=== PATIENT | female | born 1990 | race Two or more races ===

== ENCOUNTER 2023-03-18 20:25 | Inpatient (IN) | payer MEDICAID ==
[~2023-03-18] VITALS: Ht 162.6 cm; Wt 46.4 kg
[2023-03-18] MEDS: ALBUTEROL FS 2.5 MG/3 ML VIAL.NEB NEB ONE
[2023-03-18] MEDS: IV LR 1000 ML 1,000 ML BAG IV ONE (21:30)
[2023-03-18] MEDS ORDERED: ATROPINE SULFATE 1 MG/10 ML DISP.SYRIN IV ONE (22:00)
[2023-03-18] MEDS ORDERED: NOREPINEPHRINE 8MG/250ML RTU 250 ML IV ONE (22:05)
[2023-03-18] MEDS ORDERED: ATROPINE SULFATE INJ 1 MG/ML VIAL ONE (22:06)
[2023-03-18 22:13] LABS: BASOPHILS # (AUTO) 0.1 K/uL (0.0-0.2); BASOPHILS % (AUTO) 0.6 % (0.0-2.0); HEMATOCRIT 28 % (33-45); HEMOGLOBIN 8.2 g/dL (11.5-14.8); LYMPHOCYTES # (AUTO) 1.5 K/uL (0.8-4.8); LYMPHOCYTES % (AUTO) 8.2 % (20.0-44.0); MEAN CORPUSCULAR HEMOGLOBIN 29 PG (26.0-33.0); MEAN CORPUSCULAR HGB CONC 30 g/dl (31.0-36.0); MEAN CORPUSCULAR VOLUME 98 fL (82-100); MONOCYTES # (AUTO) 1.2 K/uL (0.1-1.30); MONOCYTES % (AUTO) 6.3 % (2.0-12.0); NEUTROPHILS # (AUTO) 15.9 K/uL (1.8-8.9); NEUTROPHILS % (AUTO) 84.9 % (43.0-81.0); PLATELET COUNT (AUTO) 319 K/uL (150-450); RED BLOOD CELL COUNT(AUTO) 2.85 MIL/uL (4.0-5.2); WHITE BLOOD COUNT (AUTO) 18.7 K/uL (4.3-11.0)
[2023-03-18] MEDS: NOREPINEPHRINE 8 MG in IV NS 0.9% 250 ML IV ONE (22:20)
[2023-03-18 22:29] LABS: INR 1.03 (0.91-1.10); PARTIAL THROMBOPLASTIN TIME 35.4 SEC (24.3-34.3); PROTHROMBIN TIME 10.9 SECS (9.2-11.1)
[2023-03-18 22:47] LABS: SERUM AMMONIA 18 umol/L (11-32)
[2023-03-18 22:52] LABS: THYROID STIMULATING HORMONE 5.942 uIU/mL (0.358-3.74)
[2023-03-18 22:54] LABS: ALANINE AMINOTRANSFERASE 18 U/L (12-78); ALBUMIN 2.1 g/dL (3.4-5.0); ALCOHOL, BLOOD < 3 mg/dL (0-10); ALKALINE PHOSPHATASE 113 U/L (46-116); ASPARTATE AMINOTRANSFERASE 15 U/L (15-37); BILIRUBIN,DIRECT 0.1 mg/dL (0.0-0.2); BILIRUBIN,TOTAL 0.3 mg/dL (0.2-1.0); CALCIUM, SERUM 9.2 mg/dL (8.5-10.1); CHLORIDE 103 mmol/L (98-107); GLUCOSE 259 mg/dL (74-106); SODIUM SERUM 133 mmol/L (136-145); TOTAL PROTEIN, SERUM 6.7 g/dL (6.4-8.2)
[2023-03-18 22:58] LABS: SALICYLATE 2.2 mg/dL (2.8-20.0)
[2023-03-18 22:59] LABS: ACETAMINOPHEN <10 ug/ml (10-30); CARBON DIOXIDE 7 mmol/L (21-32); CREATININE 9.6 mg/dL (0.6-1.3); LACTIC ACID 1.5 mmol/L (0.4-2.0); UREA NITROGEN, BLOOD 158 mg/dL (7-18)
[2023-03-18] MEDS: INSULIN REGULAR, HUMAN 100 UNIT/ML 10 ML VIAL IV ONE (23:00)
[2023-03-18] MEDS: DEXTROSE 50%-WATER 50 ML DISP.SYRIN IV ONE (23:00)
[2023-03-18] MEDS: CALCIUM CHLORIDE 1,000 MG/10 ML DISP.SYRIN IV ONE (23:00)
[2023-03-18] MEDS: CEFEPIME 1 GM in IV D5W 50 ML IV ONE (23:00)
[2023-03-18] MEDS ORDERED: VANCOMYCIN 1 GM /D5W 250 ML PB IV ONE (23:14)
[2023-03-18] MEDS: VANCOMYCIN 1 GM in IV D5W 250 ML IV ONE (23:15)
[2023-03-18 23:19] LABS: PHOSPHORUS 14.8 mg/dL (2.5-4.9)
[2023-03-18 23:20] LABS: MAGNESIUM 2.9 mg/dL (1.8-2.4)
[2023-03-18] MEDS ORDERED: LORAZEPAM INJ 2 MG/ML VIAL IV PRN (23:30)
[2023-03-18] MEDS ORDERED: SODIUM POLYSTYRENE SULFONATE 15 G/60 ML BOTTLE ONE (23:57)
[2023-03-18] MEDS ORDERED: CEFEPIME 1 GM VIAL ONE (23:57)
[2023-03-18] MEDS ORDERED: CALCIUM CHLORIDE 1,000 MG/10 ML DISP.SYRIN ONE (23:58)
[2023-03-18] MEDS ORDERED: INSULIN REGULAR, HUMAN 100 UNIT/ML 10 ML VIAL ONE (23:58)
[2023-03-18] MEDS ORDERED: DEXTROSE 50%-WATER 50 ML DISP.SYRIN ONE (23:58)
[2023-03-19] VITALS (62 sets, daily range): BP systolic 83–187; BP diastolic 40–131; TEMP 97–98.7; O2SAT 94–100
[2023-03-19] MEDS ORDERED: MAG HYDROX/AL HYDROX/SIMETH 30 ML UDC PO PRN
[2023-03-19] MEDS ORDERED: ZOLPIDEM TARTRATE 5 MG TABLET PO PRN
[2023-03-19] MEDS ORDERED: MAGNESIUM HYDROXIDE 30 ML UDC PO PRN
[2023-03-19] MEDS ORDERED: ALBUTEROL FS 2.5 MG/3 ML VIAL.NEB ONE (00:02)
[2023-03-19] MEDS ORDERED: ONDANSETRON HCL 4 MG/5 ML SOLUTION PO PRN (01:00)
[2023-03-19] MEDS: NOREPINEPHRINE 8 MG in IV D5W 242 ML IV PRN (01:54)
[2023-03-19 04:25] LABS: BASOPHILS # (AUTO) 0.1 K/uL (0.0-0.2); BASOPHILS % (AUTO) 0.7 % (0.0-2.0); HEMATOCRIT 28 % (33-45); HEMOGLOBIN 8.7 g/dL (11.5-14.8); LYMPHOCYTES # (AUTO) 1.3 K/uL (0.8-4.8); LYMPHOCYTES % (AUTO) 5.8 % (20.0-44.0); MEAN CORPUSCULAR HEMOGLOBIN 29 PG (26.0-33.0); MEAN CORPUSCULAR HGB CONC 31 g/dl (31.0-36.0); MEAN CORPUSCULAR VOLUME 93 fL (82-100); MONOCYTES # (AUTO) 1.7 K/uL (0.1-1.30); MONOCYTES % (AUTO) 7.8 % (2.0-12.0); NEUTROPHILS # (AUTO) 18.4 K/uL (1.8-8.9); NEUTROPHILS % (AUTO) 85.7 % (43.0-81.0); PLATELET COUNT (AUTO) 311 K/uL (150-450); RED BLOOD CELL COUNT(AUTO) 3.01 MIL/uL (4.0-5.2); RED CELL DISTRIBUTION WIDTH 16.9 % (11.5-15.0); WHITE BLOOD COUNT (AUTO) 21.5 K/uL (4.3-11.0)
[2023-03-19] MEDS: hydrALAZINE HCL 10 MG TABLET PO SCH (04:42)
[2023-03-19 04:47] LABS: CALCIUM, SERUM 9.9 mg/dL (8.5-10.1); MAGNESIUM 2.7 mg/dL (1.8-2.4)
[2023-03-19 05:04] LABS: CREATININE 9.4 mg/dL (0.6-1.3); PHOSPHORUS 14.9 mg/dL (2.5-4.9); POTASSIUM 6.3 mmol/L (3.5-5.1)
[2023-03-19] MEDS: SODIUM POLYSTYRENE SULFONATE 15 G/60 ML BOTTLE PO ONE ×3 (05:51→07:50)
[2023-03-19 06:12] LABS: ABG BASE EXCESS -26.3 mmol/L; ABG OXYGEN SATURATION 96.7 % (92.0-98.5); ABG PCO2 23.8 mmHg (35.0-45.0); ABG PO2 143.4 mmHg (75.0-100.0); ABG TOTAL HEMOGLOBIN 9.8 G/dL (12.0-16.0); AaDO2 28.2 mmHg; COHb 0.2 % (0.5-1.5); MetHb 0.3 % (0.0-1.5); O2Hb 96.2 % (94.0-97.0); SITE, ABG Right Radial; VENT MODE, BG Nasal Cannula
[2023-03-19] MEDS: BLOOD SUGAR DIAGNOSTIC 1 EACH STRIP IN SCH ×3 (06:28→17:15)
[2023-03-19] MEDS: INSULIN REGULAR, HUMAN 100 UNIT/ML 3 ML VIAL SQ PRN ×2 (06:31→23:44)
[2023-03-19] MEDS ORDERED: VANCOMYCIN POST DIALYSIS 500MG IV PRN (07:30)
[2023-03-19] MEDS: PANTOPRAZOLE 40 MG TABLET.DR PO SCH (07:30)
[2023-03-19] MEDS: SODIUM BICARBONATE SYR 50 MEQ/50 ML DISP.SYRIN IV ONE (08:20)
[2023-03-19] MEDS: SEVELAMER CARBONATE 800 MG TABLET PO SCH (08:20)
[2023-03-19] MEDS: PREGABALIN 25 MG CAPSULE PO SCH (08:20)
[2023-03-19] MEDS: FLUOXETINE HCL 20 MG CAPSULE PO SCH (08:21)
[2023-03-19] MEDS: METOLAZONE 2.5 MG TABLET PO SCH (08:27)
[2023-03-19] MEDS: AMLODIPINE BESYLATE 2.5 MG TABLET PO SCH (08:27)
[2023-03-19] MEDS: Sodium Bicarbonate 150 MEQ in IV D5W 1,000 ML IV SCH (08:39)
[2023-03-19] MEDS ORDERED: ACET-2605 PO (08:50)
[2023-03-19] MEDS ORDERED: HYDR-4075 PO (08:50)
[2023-03-19] MEDS ORDERED: FLUO40CA49 PO (08:50)
[2023-03-19] MEDS ORDERED: ACET-868 PO (08:50)
[2023-03-19] MEDS ORDERED: METO10TA8 PO (08:50)
[2023-03-19] MEDS ORDERED: FAMO-130 PO (08:50)
[2023-03-19] MEDS ORDERED: PROTEIN LIQUID PO (08:50)
[2023-03-19] MEDS ORDERED: FERR325T28 PO (08:50)
[2023-03-19] MEDS ORDERED: *INS REG3 SQ (08:50)
[2023-03-19] MEDS ORDERED: HYDR2TAB4 PO (08:50)
[2023-03-19] MEDS ORDERED: NA P133E RC (08:50)
[2023-03-19] MEDS ORDERED: CHOL500052 PO (08:50)
[2023-03-19] MEDS ORDERED: PREG25CA51 PO (08:50)
[2023-03-19] MEDS ORDERED: INSU100V7 SQ (08:50)
[2023-03-19] MEDS ORDERED: VITA1TAB98 PO (08:50)
[2023-03-19] MEDS ORDERED: AMLO5TAB4 PO (08:50)
[2023-03-19] MEDS ORDERED: ONDA-97 PO (08:50)
[2023-03-19] MEDS ORDERED: BISA10SU11 RC (08:50)
[2023-03-19] MEDS: ONDANSETRON HCL/PF 4 MG/2 ML VIAL IVP PRN (10:23)
[2023-03-19] MEDS ORDERED: hydrALAZINE HCL IV 20 MG VIAL IV PRN (11:00)
[2023-03-19] MEDS ORDERED: INSULIN REGULAR, HUMAN 100 UNIT in IV NS 0.9% 99 ML IV PRN (11:00)
[2023-03-19 12:32] LABS: AMPHETAMINE, URINE POSITIVE (NEGATIVE); BARBITURATE, URINE NEGATIVE (NEGATIVE); BENZODIAZEPINE, URINE NEGATIVE (NEGATIVE); CANNABINOID, URINE NEGATIVE (NEGATIVE); COCCAINE, URINE NEGATIVE (NEGATIVE); OPIATE, URINE NEGATIVE (NEGATIVE); PHENCYCLIDINE SCREEN,URINE NEGATIVE (NEGATIVE)
[2023-03-19 12:38] LABS: APPEARANCE,URINE TURBID (CLEAR); BILIRUBIN,URINE NEGATIVE (NEGATIVE); BLOOD, URINE 2+ Ery/uL (NEGATIVE); COLOR,URINE GREEN (YELLOW); KETONES,URINE NEGATIVE (NEGATIVE); PROTEIN,URINE 3+ mg/dl (NEGATIVE); UGLUCOSE NEGATIVE (NEGATIVE); UROBILINOGEN,URINE 0.2 EU/dL (0.2)
[2023-03-19 12:39] LABS: LEUKOCYTE ESTERASE ,URINE 2+ (NEGATIVE); NITRITE, URINE NEGATIVE (NEGATIVE)
[2023-03-19 12:50] LABS: PREGNANCY TEST URINE QUAL NEGATIVE (NEGATIVE)
[2023-03-19 12:59] LABS: ADD URINE CULTURE YES; BACTERIA,URINE Many /HPF (None Seen); SQUAMOUS EPITHELIAL CELL,UR Moderate /HPF (None Seen); WBC,URINE TOO NUMEROUS TO COUN /HPF (0-3)
[2023-03-19 13:23] LABS: CREATININE 3.6 mg/dL (0.6-1.3); MAGNESIUM 1.9 mg/dL (1.8-2.4)
[2023-03-19 13:26] LABS: POTASSIUM 1.9 mmol/L (3.5-5.1)
[2023-03-19] MEDS: DEXTROSE 50%-WATER 50 ML DISP.SYRIN IV PRN (14:02)
[2023-03-19] MEDS: POTASSIUM CL. PREMIX PERIPHER. 50 ML IV SCH ×2 (14:04→20:33)
[2023-03-19] MEDS ORDERED: DEXTROSE 50%-WATER 50 ML DISP.SYRIN IV PRN (16:00)
[2023-03-19 16:46] LABS: ABG BASE EXCESS 2.7 mmol/L; ABG OXYGEN SATURATION 96.9 % (92.0-98.5); ABG PCO2 25.6 mmHg (35.0-45.0); ABG PH 7.587 (7.350-7.450); ABG PO2 112.5 mmHg (75.0-100.0); ABG TOTAL HEMOGLOBIN 9.9 G/dL (12.0-16.0); AaDO2 28.2 mmHg; COHb 0.5 % (0.5-1.5); MetHb 0.2 % (0.0-1.5); O2Hb 96.2 % (94.0-97.0); SITE, ABG Right Radial; VENT MODE, BG 1L NC
[2023-03-19 18:17] LABS: CALCIUM, SERUM 8.5 mg/dL (8.5-10.1); CREATININE 4.1 mg/dL (0.6-1.3)
[2023-03-19 18:19] LABS: POTASSIUM 2.7 mmol/L (3.5-5.1)
[2023-03-19] MEDS: CEFEPIME 1 GM in IV D5W 50 ML IV SCH (23:18)
[2023-03-19] MEDS: MORPHINE SULFATE INJ 2 MG/ML DISP.SYRIN IV PRN (23:33)
[2023-03-20] VITALS (13 sets, daily range): BP systolic 110–149; BP diastolic 67–92; TEMP 97.9–98.9; O2SAT 92–98
[2023-03-20 05:11] LABS: BASOPHILS # (AUTO) 0.1 K/uL (0.0-0.2); BASOPHILS % (AUTO) 0.9 % (0.0-2.0); EOSINOPHILS # (AUTO) 0.1 K/uL (0.0-0.7); EOSINOPHILS % (AUTO) 0.8 % (0.0-6.0); HEMATOCRIT 25 % (33-45); HEMOGLOBIN 8.3 g/dL (11.5-14.8); LYMPHOCYTES # (AUTO) 1.4 K/uL (0.8-4.8); LYMPHOCYTES % (AUTO) 14.5 % (20.0-44.0); MEAN CORPUSCULAR HEMOGLOBIN 29 PG (26.0-33.0); MEAN CORPUSCULAR HGB CONC 33 g/dl (31.0-36.0); MEAN CORPUSCULAR VOLUME 88 fL (82-100); MONOCYTES # (AUTO) 1.1 K/uL (0.1-1.30); MONOCYTES % (AUTO) 10.8 % (2.0-12.0); NEUTROPHILS # (AUTO) 7.2 K/uL (1.8-8.9); PLATELET COUNT (AUTO) 263 K/uL (150-450); RED BLOOD CELL COUNT(AUTO) 2.86 MIL/uL (4.0-5.2); RED CELL DISTRIBUTION WIDTH 16.8 % (11.5-15.0); WHITE BLOOD COUNT (AUTO) 9.8 K/uL (4.3-11.0)
[2023-03-20 05:19] LABS: CALCIUM, SERUM 8.3 mg/dL (8.5-10.1); CREATININE 4.7 mg/dL (0.6-1.3)
[2023-03-20 05:25] LABS: MAGNESIUM 2.1 mg/dL (1.8-2.4); PHOSPHORUS 8.2 mg/dL (2.5-4.9); POTASSIUM 2.8 mmol/L (3.5-5.1)
[2023-03-20 08:07] LABS: HEPATITIS B SURFACE AB Reactive (.)
[2023-03-20 08:37] LABS: ABG BASE EXCESS -4.2 mmol/L; ABG OXYGEN SATURATION 93.3 % (92.0-98.5); ABG PH 7.383 (7.350-7.450); ABG PO2 77.4 mmHg (75.0-100.0); ABG TOTAL HEMOGLOBIN 8.6 G/dL (12.0-16.0); AaDO2 30.4 mmHg; COHb 0.7 % (0.5-1.5); MetHb 0.2 % (0.0-1.5); O2Hb 92.5 % (94.0-97.0); SITE, ABG Right Brachial; VENT MODE, BG room air
[2023-03-20] MEDS: Z GUARD REMEDY 4 OZ OINT TP PRN (09:06)
[2023-03-20] MEDS: POTASSIUM CL. PREMIX PERIPHER. 50 ML IV SCH (11:42)
[2023-03-20] MEDS: *INSULIN REGULAR(HUMULIN R)HUM 100 UNIT/ML VIAL SQ PRN (17:16)
[2023-03-20] MEDS: ACETAMINOPHEN 325 MG TABLET PO PRN (23:21)
[2023-03-21 00:45] VITALS: BP 138/76; TEMP 98.3; O2SAT 98
[2023-03-21 05:05] VITALS: BP 144/90; TEMP 97.7; O2SAT 98
[2023-03-21 07:00] LABS: BASOPHILS # (AUTO) 0.1 K/uL (0.0-0.2); BASOPHILS % (AUTO) 1.1 % (0.0-2.0); EOSINOPHILS # (AUTO) 0.3 K/uL (0.0-0.7); EOSINOPHILS % (AUTO) 2.6 % (0.0-6.0); HEMATOCRIT 26 % (33-45); HEMOGLOBIN 8.5 g/dL (11.5-14.8); LYMPHOCYTES # (AUTO) 1.9 K/uL (0.8-4.8); LYMPHOCYTES % (AUTO) 18.3 % (20.0-44.0); MEAN CORPUSCULAR HEMOGLOBIN 29 PG (26.0-33.0); MEAN CORPUSCULAR HGB CONC 33 g/dl (31.0-36.0); MEAN CORPUSCULAR VOLUME 88 fL (82-100); MONOCYTES % (AUTO) 9.3 % (2.0-12.0); NEUTROPHILS # (AUTO) 7.3 K/uL (1.8-8.9); NEUTROPHILS % (AUTO) 68.7 % (43.0-81.0); PLATELET COUNT (AUTO) 259 K/uL (150-450); RED BLOOD CELL COUNT(AUTO) 2.98 MIL/uL (4.0-5.2); WHITE BLOOD COUNT (AUTO) 10.6 K/uL (4.3-11.0)
[2023-03-21 07:13] LABS: CALCIUM, SERUM 8.2 mg/dL (8.5-10.1); MAGNESIUM 2.3 mg/dL (1.8-2.4); POTASSIUM 3.2 mmol/L (3.5-5.1)
[2023-03-21 07:21] LABS: PHOSPHORUS 8.1 mg/dL (2.5-4.9)
[2023-03-21 08:00] VITALS: BP 127/90; TEMP 97.1; O2SAT 97
[2023-03-21] MEDS: VIT B CMPLX 3/FA/VIT C/BIOTIN 1 TAB TABLET PO SCH (09:22)
[2023-03-21] MEDS: HYDROMORPHONE HCL 2 MG TABLET PO PRN (09:24)
[2023-03-21] MEDS ORDERED: FLUOXETINE HCL 20 MG CAPSULE PO SCH (10:05)
[2023-03-21 12:00] VITALS: BP 88/62; TEMP 97.1; O2SAT 98
[2023-03-21 14:34] LABS: HIV-1 p24 ANTIGEN NON REACTIVE (NONREACTIVE); HIV-1/2 ANTIBODY NON REACTIVE (NONREACTIVE)
[2023-03-21 16:00] VITALS: BP 132/94; TEMP 97.1; O2SAT 98
[2023-03-21] MEDS: PREGABALIN 25 MG CAPSULE PO SCH (17:07)
[2023-03-21 20:00] VITALS: BP 136/95; TEMP 98.4; O2SAT 97
[2023-03-22] VITALS: BP 144/93; TEMP 98.1; O2SAT 96
[2023-03-22 04:00] VITALS: BP 122/75; TEMP 97.7; O2SAT 97
[2023-03-22 06:46] LABS: BASOPHILS # (AUTO) 0.1 K/uL (0.0-0.2); BASOPHILS % (AUTO) 1.1 % (0.0-2.0); EOSINOPHILS # (AUTO) 0.3 K/uL (0.0-0.7); EOSINOPHILS % (AUTO) 2.9 % (0.0-6.0); HEMATOCRIT 26 % (33-45); HEMOGLOBIN 8.5 g/dL (11.5-14.8); LYMPHOCYTES # (AUTO) 2.4 K/uL (0.8-4.8); LYMPHOCYTES % (AUTO) 21.5 % (20.0-44.0); MEAN CORPUSCULAR HEMOGLOBIN 29 PG (26.0-33.0); MEAN CORPUSCULAR HGB CONC 33 g/dl (31.0-36.0); MEAN CORPUSCULAR VOLUME 88 fL (82-100); MONOCYTES # (AUTO) 0.9 K/uL (0.1-1.30); MONOCYTES % (AUTO) 8.3 % (2.0-12.0); NEUTROPHILS # (AUTO) 7.5 K/uL (1.8-8.9); NEUTROPHILS % (AUTO) 66.2 % (43.0-81.0); PLATELET COUNT (AUTO) 259 K/uL (150-450); RED BLOOD CELL COUNT(AUTO) 2.94 MIL/uL (4.0-5.2); RED CELL DISTRIBUTION WIDTH 16.7 % (11.5-15.0); WHITE BLOOD COUNT (AUTO) 11.3 K/uL (4.3-11.0)
[2023-03-22 07:08] LABS: CALCIUM, SERUM 8.6 mg/dL (8.5-10.1); CREATININE 5.9 mg/dL (0.6-1.3); MAGNESIUM 2.2 mg/dL (1.8-2.4); PHOSPHORUS 6.9 mg/dL (2.5-4.9); POTASSIUM 3.3 mmol/L (3.5-5.1)
[2023-03-22 08:00] VITALS: BP 131/95; TEMP 97.5; O2SAT 97
[2023-03-22] MEDS: FLUOXETINE HCL 20 MG CAPSULE PO SCH (08:18)
[2023-03-22] MEDS: FERROUS SULFATE (325 MG) 325 MG/TAB TABLET PO SCH (08:22)
[2023-03-22] MEDS: VITAMIN B COMP W-C 1 TAB TABLET PO SCH (08:23)
[2023-03-22] MEDS: ERGOCALCIFEROL (VITAMIN D 2) 50,000 UNIT CAPSULE PO SCH (08:23)
[2023-03-22] MEDS ORDERED: ERGOCALCIFEROL (VITAMIN D 2) 50,000 UNIT CAPSULE PO SCH (09:00)
[2023-03-22 12:00] VITALS: BP 125/88; TEMP 98.2; O2SAT 96
[2023-03-22] MEDS: METOCLOPRAMIDE HCL 10 MG/2 ML VIAL IV ONE (13:07)
[2023-03-22] MEDS: diphenhydrAMINE HCL 50 MG/ML VIAL IV ONE (13:07)
[2023-03-22] MEDS: LEVOFLOXACIN (250MG) 250 MG TABLET PO ONE (13:34)
[2023-03-22 16:00] VITALS: BP 96/67; TEMP 98.2; O2SAT 98
[2023-03-22 20:00] VITALS: BP 123/77; TEMP 97.7; O2SAT 96
[2023-03-23 04:00] VITALS: BP 136/90; TEMP 97.8; O2SAT 96
[2023-03-23 06:51] LABS: BASOPHILS # (AUTO) 0.1 K/uL (0.0-0.2); BASOPHILS % (AUTO) 0.8 % (0.0-2.0); EOSINOPHILS # (AUTO) 0.3 K/uL (0.0-0.7); EOSINOPHILS % (AUTO) 2.5 % (0.0-6.0); HEMATOCRIT 27 % (33-45); HEMOGLOBIN 8.6 g/dL (11.5-14.8); LYMPHOCYTES # (AUTO) 2.2 K/uL (0.8-4.8); LYMPHOCYTES % (AUTO) 17.3 % (20.0-44.0); MEAN CORPUSCULAR HEMOGLOBIN 28 PG (26.0-33.0); MEAN CORPUSCULAR HGB CONC 32 g/dl (31.0-36.0); MEAN CORPUSCULAR VOLUME 89 fL (82-100); MONOCYTES # (AUTO) 0.8 K/uL (0.1-1.30); MONOCYTES % (AUTO) 6.1 % (2.0-12.0); NEUTROPHILS # (AUTO) 9.2 K/uL (1.8-8.9); NEUTROPHILS % (AUTO) 73.3 % (43.0-81.0); PLATELET COUNT (AUTO) 280 K/uL (150-450); RED BLOOD CELL COUNT(AUTO) 3.04 MIL/uL (4.0-5.2); RED CELL DISTRIBUTION WIDTH 16.5 % (11.5-15.0); WHITE BLOOD COUNT (AUTO) 12.6 K/uL (4.3-11.0)
[2023-03-23 07:22] LABS: CALCIUM, SERUM 8.1 mg/dL (8.5-10.1); CREATININE 6.4 mg/dL (0.6-1.3); MAGNESIUM 2.4 mg/dL (1.8-2.4); POTASSIUM 4.2 mmol/L (3.5-5.1)
[2023-03-23 08:00] VITALS: BP 128/94; TEMP 97.5; O2SAT 97
[2023-03-23 12:00] VITALS: BP 130/82; TEMP 97.8; O2SAT 97
[2023-03-23] MEDS ORDERED: LEVO250T59 PO (14:35)
[2023-03-23] MEDS: ALBUMIN 25% 25 GM in PREMIX 1 EA IV PRN (15:00)
[2023-03-23 15:20] VITALS: BP 133/85; TEMP 97.8; O2SAT 97
[2023-03-23 16:00] VITALS: BP 130/82; TEMP 97.6; O2SAT 97
[2023-03-24] MEDS ORDERED: LEVOFLOXACIN (250MG) 250 MG TABLET PO SCH (13:00)
== END 2023-03-23 17:40 | DRG 720 ==
LOC: ER 20:37 → ICU 22:43 → TELE1 03-20 10:18 → MEDSG1 03-22 10:08
PROVIDERS: ADMIT Student in an Organized Health Care Education/Training Program; ATTEND Nurse Practitioner Acute Care
PROC: 5A1D70Z Performance of Urinary Filtration, Intermittent, Less than 6 Hours Per Day (ICD-10-PCS; principal; 2023-03-19)
DX: A41.9 Sepsis, unspecified organism (principal); R65.21 Severe sepsis with septic shock; G93.40 Encephalopathy, unspecified; E43 Unspecified severe protein-calorie malnutrition; R64 Cachexia; E87.20 Acidosis, unspecified; D63.1 Anemia in chronic kidney disease; E83.39 Other disorders of phosphorus metabolism; E83.41 Hypermagnesemia; N17.9 Acute kidney failure, unspecified; N18.6 End stage renal disease; I12.0 Hypertensive chronic kidney disease with stage 5 chronic kidney disease or end stage renal disease; E87.1 Hypo-osmolality and hyponatremia; E10.22 Type 1 diabetes mellitus with diabetic chronic kidney disease; K21.9 Gastro-esophageal reflux disease without esophagitis; B96.1 Klebsiella pneumoniae [K. pneumoniae] as the cause of diseases classified elsewhere; E87.5 Hyperkalemia; N39.0 Urinary tract infection, site not specified; F32.A Depression, unspecified; M62.81 Muscle weakness (generalized); Z68.1 Body mass index [BMI] 19.9 or less, adult; E03.8 Other specified hypothyroidism; E10.65 Type 1 diabetes mellitus with hyperglycemia; Z79.4 Long term (current) use of insulin; Z99.2 Dependence on renal dialysis
CPT/HCPCS: 36415; 36600; 70450-TC; 71045-TC; 80048-TC; 80076-TC; 80202-TC; 81001; 82010-TC; 82140-TC; 82962-TC; 83605-TC; 83735-TC; 84100-TC; 84439-TC; 84443-TC; 84702-TC; 84703-TC; 85025-TC; 85730-TC; 86706; 86803; 87040-TC; 87086-TC; 87340; 87806; 90935-TC; 92526; 92611-TC; A4216; A4223; G0378; G0480; J0461; J0692; J1200; J1815; J2270; J2405; J2765; J3370; J3480; J3490; J7030; J7050; J7060; J7070; J7120; P9047

== ENCOUNTER 2023-06-15 10:13 | Inpatient (IN) | payer OTHER ==
[2023-06-15] VITALS (13 sets, daily range): BP systolic 98–160; BP diastolic 50–98; TEMP 97.3; O2SAT 96–100
[~2023-06-15] VITALS: Ht 152.4 cm; Wt 40.8 kg
[~2023-06-15 10:13] MED LIST: *INS REG3 SQ; ACET-2605 PO; ACET-868 PO; AMLO5TAB4 PO; BISA10SU11 RC; CHOL500052 PO; FAMO-130 PO; FERR325T28 PO; FLUO40CA49 PO; HYDR-4075 PO; HYDR2TAB4 PO; INSU100V7 SQ; LEVO250T59 PO; METO10TA8 PO; NA P133E RC; ONDA-97 PO; PREG25CA51 PO; PROTEIN LIQUID PO; VITA1TAB98 PO
[2023-06-15] MEDS ORDERED: MIDODRINE HCL (5MG) 5 MG TABLET ONE (10:36)
[2023-06-15 10:41] LABS: BASOPHILS % (AUTO) 0.1 % (0.0-2.0); EOSINOPHILS # (AUTO) 0.3 K/uL (0.0-0.7); EOSINOPHILS % (AUTO) 2.7 % (0.0-6.0); HEMATOCRIT 29 % (33-45); HEMOGLOBIN 8.9 g/dL (11.5-14.8); LYMPHOCYTES # (AUTO) 1.7 K/uL (0.8-4.8); LYMPHOCYTES % (AUTO) 17.2 % (20.0-44.0); MEAN CORPUSCULAR HEMOGLOBIN 29 PG (26.0-33.0); MEAN CORPUSCULAR HGB CONC 31 g/dl (31.0-36.0); MEAN CORPUSCULAR VOLUME 95 fL (82-100); MONOCYTES # (AUTO) 0.9 K/uL (0.1-1.30); MONOCYTES % (AUTO) 8.9 % (2.0-12.0); NEUTROPHILS # (AUTO) 6.9 K/uL (1.8-8.9); NEUTROPHILS % (AUTO) 71.1 % (43.0-81.0); PLATELET COUNT (AUTO) 244 K/uL (150-450); RED BLOOD CELL COUNT(AUTO) 3.06 MIL/uL (4.0-5.2); RED CELL DISTRIBUTION WIDTH 18.5 % (11.5-15.0); WHITE BLOOD COUNT (AUTO) 9.8 K/uL (4.3-11.0)
[2023-06-15] MEDS: MIDODRINE HCL (5MG) 5 MG TABLET PO STA (10:41)
[2023-06-15 11:29] LABS: POTASSIUM 8.5 mmol/L (3.5-5.1)
[2023-06-15 11:30] LABS: CREATININE 7.7 mg/dL (0.6-1.3)
[2023-06-15] MEDS ORDERED: NYSTATIN/TRIAMCIN CREAM 15 GM TUBE TP STA (11:36)
[2023-06-15] MEDS ORDERED: SODIUM POLYSTYRENE SULFONATE 15 G/60 ML BOTTLE ONE (11:57)
[2023-06-15] MEDS ORDERED: FUROSEMIDE 20 MG/2 ML VIAL ONE (11:57)
[2023-06-15] MEDS ORDERED: SODIUM BICARBONATE SYR 50 MEQ/50 ML DISP.SYRIN ONE (11:58)
[2023-06-15] MEDS ORDERED: CALCIUM CHLORIDE 1,000 MG/10 ML DISP.SYRIN ONE (11:58)
[2023-06-15] MEDS ORDERED: ALBUTEROL FS 2.5 MG/3 ML VIAL.NEB ONE (12:16)
[2023-06-15] MEDS: CALCIUM CHLORIDE 1,000 MG/10 ML DISP.SYRIN IV ONE (12:20)
[2023-06-15] MEDS: ALBUTEROL FS 2.5 MG/3 ML VIAL.NEB NEB ONE (12:20)
[2023-06-15] MEDS: SODIUM POLYSTYRENE SULFONATE 15 G/60 ML BOTTLE PO ONE (12:21)
[2023-06-15] MEDS: SODIUM BICARBONATE SYR 50 MEQ/50 ML DISP.SYRIN IV ONE (12:22)
[2023-06-15] MEDS: FUROSEMIDE 40 MG/4 ML VIAL IV ONE (12:23)
[2023-06-15] MEDS: COD LIVER OIL/ZINC OXIDE 120 GM TUBE TP STA (12:24)
[2023-06-15 14:33] LABS: BAND % (MANUAL) 1 % (0.0-5.0); LYMPHOCYTES % (MANUAL) 19 % (16-48); REACTIVE LYMPHOCYTES 8 % (0-0)
[2023-06-15 14:34] LABS: MONOCYTES % (MANUAL) 2 % (0-11.0); NEUTROPHILS % (MANUAL) 70 (42-76); PLATELET ESTIMATE ADEQUATE
[2023-06-15] MEDS ORDERED: ZOLPIDEM TARTRATE 5 MG TABLET PO PRN (15:00)
[2023-06-15] MEDS ORDERED: ONDANSETRON HCL/PF 4 MG/2 ML VIAL IVP PRN (15:00)
[2023-06-15] MEDS ORDERED: Z GUARD REMEDY 4 OZ OINT TP PRN (15:00)
[2023-06-15] MEDS: IV NS 0.9% 1,000 ML BAG IV ONE (15:13)
[2023-06-15 15:34] LABS: CALCIUM, SERUM 8.9 mg/dL (8.5-10.1)
[2023-06-15] MEDS: CEFEPIME 1 GM in IV D5W 50 ML IV SCH (15:37)
[2023-06-15] MEDS ORDERED: DIPH25TA27 PO (16:10)
[2023-06-15] MEDS ORDERED: MAGN400O6 PO (16:10)
[2023-06-15] MEDS ORDERED: CLON0.1T PO (16:10)
[2023-06-15] MEDS ORDERED: SENN8.6T19 PO (16:10)
[2023-06-15] MEDS ORDERED: NYST15PO4 TP (16:10)
[2023-06-15] MEDS ORDERED: PANT40TA49 PO (16:10)
[2023-06-15] MEDS: VANCOMYCIN 1 GM in IV D5W 250ml IV ONE (16:18)
[2023-06-15 16:22] LABS: CREATININE 7.9 mg/dL (0.6-1.3)
[2023-06-15] MEDS: OLANZAPINE 10 MG VIAL IM ONE (22:45)
[2023-06-16] VITALS (20 sets, daily range): BP systolic 126–165; BP diastolic 78–105; TEMP 97.8–98.1; O2SAT 97–100
[2023-06-16 01:09] LABS: CREATININE 3.7 mg/dL (0.6-1.3); POTASSIUM 3.4 mmol/L (3.5-5.1)
[2023-06-16] MEDS: HYDROMORPHONE 1 MG/1 ML DISP.SYRIN IV ONE (02:53)
[2023-06-16 07:19] LABS: BASOPHILS # (AUTO) 0.1 K/uL (0.0-0.2); BASOPHILS % (AUTO) 0.8 % (0.0-2.0); EOSINOPHILS # (AUTO) 0.1 K/uL (0.0-0.7); EOSINOPHILS % (AUTO) 1.1 % (0.0-6.0); HEMATOCRIT 25 % (33-45); HEMOGLOBIN 8.3 g/dL (11.5-14.8); LYMPHOCYTES # (AUTO) 0.9 K/uL (0.8-4.8); LYMPHOCYTES % (AUTO) 11.1 % (20.0-44.0); MEAN CORPUSCULAR HEMOGLOBIN 29 PG (26.0-33.0); MEAN CORPUSCULAR HGB CONC 33 g/dl (31.0-36.0); MEAN CORPUSCULAR VOLUME 89 fL (82-100); MONOCYTES # (AUTO) 0.6 K/uL (0.1-1.30); MONOCYTES % (AUTO) 7.6 % (2.0-12.0); NEUTROPHILS # (AUTO) 6.2 K/uL (1.8-8.9); NEUTROPHILS % (AUTO) 79.4 % (43.0-81.0); PLATELET COUNT (AUTO) 218 K/uL (150-450); RED BLOOD CELL COUNT(AUTO) 2.83 MIL/uL (4.0-5.2); RED CELL DISTRIBUTION WIDTH 17.5 % (11.5-15.0); WHITE BLOOD COUNT (AUTO) 7.8 K/uL (4.3-11.0)
[2023-06-16] MEDS: PANTOPRAZOLE 40 MG TABLET.DR PO SCH (07:38)
[2023-06-16 07:46] LABS: CALCIUM, SERUM 7.7 mg/dL (8.5-10.1); CREATININE 4.2 mg/dL (0.6-1.3); POTASSIUM 3.2 mmol/L (3.5-5.1)
[2023-06-16 08:06] LABS: MAGNESIUM 2.1 mg/dL (1.8-2.4); PHOSPHORUS 7.1 mg/dL (2.5-4.9)
[2023-06-16] MEDS: CLOTRIMAZOLE 1% 15 GM TUBE TP SCH (08:43)
[2023-06-16] MEDS: BLOOD SUGAR DIAGNOSTIC 1 EACH STRIP IN SCH (11:31)
[2023-06-16 12:31] LABS: APPEARANCE,URINE CLOUDY (CLEAR); BILIRUBIN,URINE NEGATIVE (NEGATIVE); BLOOD, URINE 2+ Ery/uL (NEGATIVE); COLOR,URINE YELLOW (YELLOW); KETONES,URINE 1+ mg/dL (NEGATIVE); LEUKOCYTE ESTERASE ,URINE 3+ (NEGATIVE); NITRITE, URINE NEGATIVE (NEGATIVE); PH,URINE 6.5 (5.0-8.0); PROTEIN,URINE 3+ mg/dl (NEGATIVE); UGLUCOSE 1+ mg/dL (NEGATIVE); UROBILINOGEN,URINE 0.2 EU/dL (0.2)
[2023-06-16 12:40] LABS: ADD URINE CULTURE YES; BACTERIA,URINE Moderate /HPF (None Seen); SQUAMOUS EPITHELIAL CELL,UR Rare /HPF (None Seen); WBC,URINE 51-80 /HPF (0-3)
[2023-06-16] MEDS: INSULIN REGULAR, HUMAN 100 UNIT/ML 3 ML VIAL SQ PRN (22:49)
[2023-06-17] VITALS: BP 155/90; TEMP 98.1; O2SAT 95
[2023-06-17 04:00] VITALS: BP 148/92; TEMP 99.1; O2SAT 98
[2023-06-17 07:19] LABS: BASOPHILS # (AUTO) 0.1 K/uL (0.0-0.2); BASOPHILS % (AUTO) 1.8 % (0.0-2.0); EOSINOPHILS # (AUTO) 0.2 K/uL (0.0-0.7); EOSINOPHILS % (AUTO) 2.3 % (0.0-6.0); HEMATOCRIT 27 % (33-45); HEMOGLOBIN 9.1 g/dL (11.5-14.8); LYMPHOCYTES # (AUTO) 1.3 K/uL (0.8-4.8); LYMPHOCYTES % (AUTO) 17.8 % (20.0-44.0); MEAN CORPUSCULAR HEMOGLOBIN 30 PG (26.0-33.0); MEAN CORPUSCULAR HGB CONC 34 g/dl (31.0-36.0); MEAN CORPUSCULAR VOLUME 88 fL (82-100); MONOCYTES # (AUTO) 0.8 K/uL (0.1-1.30); MONOCYTES % (AUTO) 11.2 % (2.0-12.0); NEUTROPHILS # (AUTO) 4.8 K/uL (1.8-8.9); NEUTROPHILS % (AUTO) 66.9 % (43.0-81.0); PLATELET COUNT (AUTO) 255 K/uL (150-450); RED BLOOD CELL COUNT(AUTO) 3.06 MIL/uL (4.0-5.2); RED CELL DISTRIBUTION WIDTH 17.2 % (11.5-15.0); WHITE BLOOD COUNT (AUTO) 7.1 K/uL (4.3-11.0)
[2023-06-17 07:54] LABS: ALBUMIN 2.3 g/dL (3.4-5.0); BILIRUBIN,TOTAL 0.4 mg/dL (0.2-1.0); CREATININE 5.9 mg/dL (0.6-1.3); MAGNESIUM 2.5 mg/dL (1.8-2.4); POTASSIUM 3.1 mmol/L (3.5-5.1); TOTAL PROTEIN, SERUM 6.9 g/dL (6.4-8.2)
[2023-06-17 07:59] LABS: PHOSPHORUS 10.3 mg/dL (2.5-4.9)
[2023-06-17 08:00] VITALS: BP 128/80; TEMP 97.7; O2SAT 95
[2023-06-17 09:08] LABS: HEPATITIS B SURFACE AB Reactive (.)
[2023-06-17 12:00] VITALS: BP 139/87; TEMP 98.3; O2SAT 92
[2023-06-17 16:00] VITALS: BP 175/105; TEMP 98.2; O2SAT 95
[2023-06-17 20:00] VITALS: BP 161/93; TEMP 98.2; O2SAT 99
[2023-06-17] MEDS: VANCOMYCIN 1 GM /D5W 250 ML PB IV ONE (21:37)
[2023-06-17] MEDS: VANCOMYCIN POST DIALYSIS 500MG IV PRN (21:52)
[2023-06-18] VITALS: BP 160/90; TEMP 98.4; O2SAT 96
[2023-06-18] MEDS: ACETAMINOPHEN 325 MG TABLET PO PRN (04:20)
[2023-06-18 05:00] VITALS: BP 166/97; TEMP 98.6; O2SAT 96
[2023-06-18 06:49] LABS: BASOPHILS # (AUTO) 0.1 K/uL (0.0-0.2); BASOPHILS % (AUTO) 1.7 % (0.0-2.0); EOSINOPHILS # (AUTO) 0.2 K/uL (0.0-0.7); EOSINOPHILS % (AUTO) 3.3 % (0.0-6.0); HEMATOCRIT 26 % (33-45); HEMOGLOBIN 8.7 g/dL (11.5-14.8); LYMPHOCYTES # (AUTO) 1.4 K/uL (0.8-4.8); LYMPHOCYTES % (AUTO) 21.2 % (20.0-44.0); MEAN CORPUSCULAR HEMOGLOBIN 29 PG (26.0-33.0); MEAN CORPUSCULAR HGB CONC 33 g/dl (31.0-36.0); MEAN CORPUSCULAR VOLUME 88 fL (82-100); MONOCYTES # (AUTO) 0.8 K/uL (0.1-1.30); MONOCYTES % (AUTO) 11.6 % (2.0-12.0); NEUTROPHILS # (AUTO) 4.1 K/uL (1.8-8.9); NEUTROPHILS % (AUTO) 62.2 % (43.0-81.0); PLATELET COUNT (AUTO) 254 K/uL (150-450); RED BLOOD CELL COUNT(AUTO) 2.98 MIL/uL (4.0-5.2); RED CELL DISTRIBUTION WIDTH 17.5 % (11.5-15.0); WHITE BLOOD COUNT (AUTO) 6.5 K/uL (4.3-11.0)
[2023-06-18 07:08] LABS: ALBUMIN 2.2 g/dL (3.4-5.0); BILIRUBIN,TOTAL 0.4 mg/dL (0.2-1.0); CALCIUM, SERUM 7.6 mg/dL (8.5-10.1); CREATININE 3.9 mg/dL (0.6-1.3); MAGNESIUM 2.1 mg/dL (1.8-2.4); PHOSPHORUS 5.6 mg/dL (2.5-4.9); POTASSIUM 3.1 mmol/L (3.5-5.1); TOTAL PROTEIN, SERUM 6.8 g/dL (6.4-8.2)
[2023-06-18 08:00] VITALS: BP 140/86; TEMP 97.6; O2SAT 97
[2023-06-18] MEDS: INSULIN GLARGINE, 100 UNIT/ML CARTRIDGE SQ SCH (12:41)
[2023-06-18] MEDS: HYDROCODONE/APAP 5/325MG TABLET PO PRN (15:55)
[2023-06-18 16:00] VITALS: BP 179/101; TEMP 98; O2SAT 97
[2023-06-18 20:00] VITALS: BP 140/95; TEMP 97.7; O2SAT 98
[2023-06-19] VITALS: BP 148/88; TEMP 98.1; O2SAT 100
[2023-06-19 04:00] VITALS: BP 131/84; TEMP 97.7; O2SAT 97
[2023-06-19 07:00] VITALS: BP 128/98; TEMP 97.7; O2SAT 98
[2023-06-19 08:04] LABS: CALCIUM, SERUM 8.5 mg/dL (8.5-10.1); CREATININE 4.9 mg/dL (0.6-1.3); POTASSIUM 3.5 mmol/L (3.5-5.1)
[2023-06-19] MEDS: APIXABAN 2.5 MG TABLET PO SCH (09:01)
[2023-06-19 11:42] LABS: PREGNANCY TEST URINE QUAL NEGATIVE (NEGATIVE)
[2023-06-19 16:00] VITALS: BP 138/93; TEMP 98.1; O2SAT 99
[2023-06-19 20:00] VITALS: BP 150/82; TEMP 98.2; O2SAT 98
[2023-06-20] MEDS: DEXTROSE 50%-WATER 50 ML DISP.SYRIN IV PRN (06:19)
[2023-06-20 07:30] VITALS: BP 108/86; TEMP 97.6; O2SAT 100
[2023-06-20 10:24] LABS: CREATININE 5.4 mg/dL (0.6-1.3); POTASSIUM 3.3 mmol/L (3.5-5.1)
[2023-06-20] MEDS: MEROPENEM 500 MG in IV NS 0.9% 50 ML IV SCH (15:05)
[2023-06-20 16:00] VITALS: BP 153/102; TEMP 98.5; O2SAT 97
[2023-06-20 20:00] VITALS: BP 116/64; TEMP 99; O2SAT 97
[2023-06-21 08:21] LABS: CALCIUM, SERUM 7.7 mg/dL (8.5-10.1); CREATININE 6.3 mg/dL (0.6-1.3); POTASSIUM 4.2 mmol/L (3.5-5.1)
[2023-06-21 16:00] VITALS: BP 181/100; TEMP 97.8; O2SAT 99
[2023-06-21 20:00] VITALS: BP 150/101; TEMP 98.2; O2SAT 100
[2023-06-22 07:30] VITALS: BP 175/110; TEMP 98.1; O2SAT 98
[2023-06-22] MEDS: FLUOXETINE HCL 20 MG CAPSULE PO SCH (10:50)
[2023-06-22 12:28] VITALS: BP 117/76
[2023-06-22] MEDS: hydrALAZINE HCL 10 MG TABLET PO SCH (12:28)
[2023-06-22] MEDS ORDERED: PREGABALIN 25 MG CAPSULE PO SCH (17:00)
[2023-06-23] MEDS ORDERED: PANTOPRAZOLE 40 MG TABLET.DR PO SCH (07:30)
[2023-06-23] MEDS ORDERED: AMLODIPINE BESYLATE 5 MG TABLET PO SCH (09:00)
[2023-06-23] MEDS ORDERED: INSULIN GLARGINE HUM REC ANLOG 10 UNIT SQ SCH (09:00)
[2023-06-23] MEDS ORDERED: METOLAZONE 2.5 MG TABLET PO SCH (09:00)
== END 2023-06-22 16:49 | DRG 463 ==
LOC: ER 10:15 → ICU 15:45 → MED 06-16 18:55 → TELE 06-16 21:23 → MED 06-19 15:58
PROVIDERS: ATTEND Internal Medicine
PROC: 5A1D70Z Performance of Urinary Filtration, Intermittent, Less than 6 Hours Per Day (ICD-10-PCS; principal; 2023-06-15)
DX: N39.0 Urinary tract infection, site not specified (principal); G92.8 Other toxic encephalopathy; E43 Unspecified severe protein-calorie malnutrition; E87.20 Acidosis, unspecified; I95.9 Hypotension, unspecified; E87.1 Hypo-osmolality and hyponatremia; I12.0 Hypertensive chronic kidney disease with stage 5 chronic kidney disease or end stage renal disease; B96.20 Unspecified Escherichia coli [E. coli] as the cause of diseases classified elsewhere; E10.22 Type 1 diabetes mellitus with diabetic chronic kidney disease; E87.5 Hyperkalemia; N18.6 End stage renal disease; T82.868A Thrombosis due to vascular prosthetic devices, implants and grafts, initial encounter; E03.8 Other specified hypothyroidism; F32.A Depression, unspecified; K21.9 Gastro-esophageal reflux disease without esophagitis; M89.8X9 Other specified disorders of bone, unspecified site; M62.81 Muscle weakness (generalized); Z79.4 Long term (current) use of insulin; Z88.1 Allergy status to other antibiotic agents; Z99.2 Dependence on renal dialysis; Z87.440 Personal history of urinary (tract) infections; F19.90 Other psychoactive substance use, unspecified, uncomplicated; Z68.1 Body mass index [BMI] 19.9 or less, adult; Z20.822 Contact with and (suspected) exposure to COVID-19; Y83.8 Other surgical procedures as the cause of abnormal reaction of the patient, or of later complication, without mention of misadventure at the time of the procedure; Y92.129 Unspecified place in nursing home as the place of occurrence of the external cause; Z16.12 Extended spectrum beta lactamase (ESBL) resistance
CPT/HCPCS: 36415; 71045-TC; 80048-TC; 80053-TC; 80202-TC; 81001; 82947-TC; 82962-TC; 83735-TC; 83880; 84100-TC; 84484-TC; 84703-TC; 85025-TC; 86706; 87040-TC; 87081-TC; 87086-TC; 87340; 90935-TC; 93307-TC; A4223; G0378; J0692; J1170; J1815; J1940; J2185; J3370; J3490; J7030; J7050; J7060

== ENCOUNTER 2023-09-17 15:44 | Inpatient (IN) | payer MEDICAID ==
[~2023-09-17] VITALS: Ht 162.6 cm; Wt 52.2 kg
[~2023-09-17 15:44] MED LIST changes: -CHOL500052 PO; +CLON0.1T PO; +DIPH25TA27 PO; -FAMO-130 PO; -FERR325T28 PO; -LEVO250T59 PO; +MAGN400O6 PO; +NYST15PO4 TP; -ONDA-97 PO; +PANT40TA49 PO; -PROTEIN LIQUID PO; +SENN8.6T19 PO
[2023-09-17 16:31] LABS: BASOPHILS % (AUTO) 0.4 % (0.0-2.0); EOSINOPHILS % (AUTO) 0.3 % (0.0-6.0); HEMATOCRIT 35 % (33-45); HEMOGLOBIN 11.3 g/dL (11.5-14.8); LYMPHOCYTES # (AUTO) 1.4 K/uL (0.8-4.8); LYMPHOCYTES % (AUTO) 12.9 % (20.0-44.0); MEAN CORPUSCULAR HEMOGLOBIN 28 PG (26.0-33.0); MEAN CORPUSCULAR HGB CONC 32 g/dl (31.0-36.0); MEAN CORPUSCULAR VOLUME 87 fL (82-100); MONOCYTES # (AUTO) 0.6 K/uL (0.1-1.30); MONOCYTES % (AUTO) 5.1 % (2.0-12.0); NEUTROPHILS % (AUTO) 81.3 % (43.0-81.0); PLATELET COUNT (AUTO) 257 K/uL (150-450); RED BLOOD CELL COUNT(AUTO) 4.04 MIL/uL (4.0-5.2); RED CELL DISTRIBUTION WIDTH 14.2 % (11.5-15.0)
[2023-09-17] MEDS: ONDANSETRON HCL/PF 4 MG/2 ML VIAL IVP ONE (16:35)
[2023-09-17] MEDS ORDERED: ONDANSETRON HCL/PF 4 MG/2 ML VIAL ONE ×2 (16:37→19:18)
[2023-09-17 16:39] LABS: CALCIUM, SERUM 9.2 mg/dL (8.5-10.1); POTASSIUM 3.2 mmol/L (3.5-5.1)
[2023-09-17] MEDS ORDERED: PANTOPRAZOLE 40 MG VIAL ONE (16:41)
[2023-09-17 16:42] LABS: INR 0.98 (0.91-1.10); PARTIAL THROMBOPLASTIN TIME 24.9 SEC (24.3-34.3); PROTHROMBIN TIME 10.1 SECS (9.2-11.1)
[2023-09-17] MEDS ORDERED: HYDROMORPHONE 1 MG/1 ML DISP.SYRIN ONE (16:44)
[2023-09-17 16:45] LABS: ALBUMIN 2.6 g/dL (3.4-5.0); BILIRUBIN,DIRECT 0.1 mg/dL (0.0-0.2); BILIRUBIN,TOTAL 0.4 mg/dL (0.2-1.0); TOTAL PROTEIN, SERUM 6.8 g/dL (6.4-8.2)
[2023-09-17] MEDS: HYDROMORPHONE INJ 2 MG/ML DISP.SYRIN IV ONE (16:45)
[2023-09-17] MEDS: PANTOPRAZOLE 40 MG VIAL IV ONE (16:45)
[2023-09-17 18:40] LABS: PREGNANCY TEST URINE QUAL NEGATIVE (NEGATIVE)
[2023-09-17 18:43] LABS: APPEARANCE,URINE Cloudy (CLEAR); BILIRUBIN,URINE SMALL (NEGATIVE); BLOOD, URINE Moderate Ery/uL (NEGATIVE); COLOR,URINE YELLOW (YELLOW); KETONES,URINE 80 mg/dL (NEGATIVE); LEUKOCYTE ESTERASE ,URINE Small (NEGATIVE); NITRITE, URINE Negative (NEGATIVE); PROTEIN,URINE >=300 mg/dl (NEGATIVE); UGLUCOSE 500 MG/DL mg/dL (NEGATIVE); UROBILINOGEN,URINE 0.2 EU/dL (0.2)
[2023-09-17 18:52] LABS: ADD URINE CULTURE YES; BACTERIA,URINE 2+ /HPF (None Seen); WBC,URINE 21-50 /HPF (0-3)
[2023-09-17 18:53] LABS: URINE AMORPHOUS URATE Few /HPF (None Seen)
[2023-09-17] MEDS: ONDANSETRON HCL/PF - ER 4 MG/2 ML VIAL IV ONE (19:31)
[2023-09-17] MEDS: CEFTRIAXONE 1GM BAG (ER ONLY) 1 GM/50 ML PIGGYBACK IV ONE (19:31)
[2023-09-17] MEDS: HYDROMORPHONE 1 MG/1 ML DISP.SYRIN IV ONE (19:31)
[2023-09-17] MEDS: IV NS 0.9% 500 ML BAG IV ONE (19:31)
[2023-09-17 22:08] VITALS: BP_SYST 150; BP_SYST 156; BP_DIAS 86; BP_DIAS 93; TEMP 98.4; TEMP 98.8; O2SAT 96; O2SAT 97
[2023-09-17] MEDS ORDERED: Z GUARD REMEDY 4 OZ OINT TP PRN (22:30)
[2023-09-17] MEDS ORDERED: MAGNESIUM HYDROXIDE 30 ML UDC PO PRN (22:30)
[2023-09-17] MEDS ORDERED: ZOLPIDEM TARTRATE 5 MG TABLET PO PRN (22:30)
[2023-09-17] MEDS ORDERED: ACETAMINOPHEN 325 MG TABLET PO PRN (22:30)
[2023-09-17] MEDS: POTASSIUM CHLORIDE 20 MEQ TAB.PRT.SR PO SCH (23:39)
[2023-09-17] MEDS: ONDANSETRON HCL/PF 4 MG/2 ML VIAL IVP PRN (23:48)
[2023-09-18] MEDS ORDERED: KETOROLAC TROMETHAMINE 15 MG/ML VIAL IV PRN (00:30)
[2023-09-18] MEDS ORDERED: MORPHINE SULFATE INJ 2 MG/ML DISP.SYRIN IV PRN (00:30)
[2023-09-18] MEDS: HYDROMORPHONE 1 MG/1 ML DISP.SYRIN IV PRN (01:00)
[2023-09-18] MEDS: INSULIN REGULAR, HUMAN 100 UNIT/ML 3 ML VIAL SQ PRN (06:51)
[2023-09-18 06:58] LABS: BASOPHILS # (AUTO) 0.1 K/uL (0.0-0.2); BASOPHILS % (AUTO) 0.9 % (0.0-2.0); EOSINOPHILS # (AUTO) 0.1 K/uL (0.0-0.7); EOSINOPHILS % (AUTO) 1.4 % (0.0-6.0); HEMATOCRIT 34 % (33-45); HEMOGLOBIN 11.2 g/dL (11.5-14.8); LYMPHOCYTES # (AUTO) 1.8 K/uL (0.8-4.8); LYMPHOCYTES % (AUTO) 18.6 % (20.0-44.0); MEAN CORPUSCULAR HEMOGLOBIN 29 PG (26.0-33.0); MEAN CORPUSCULAR HGB CONC 33 g/dl (31.0-36.0); MEAN CORPUSCULAR VOLUME 88 fL (82-100); MONOCYTES # (AUTO) 0.5 K/uL (0.1-1.30); MONOCYTES % (AUTO) 5.6 % (2.0-12.0); NEUTROPHILS # (AUTO) 7.1 K/uL (1.8-8.9); NEUTROPHILS % (AUTO) 73.5 % (43.0-81.0); PLATELET COUNT (AUTO) 252 K/uL (150-450); RED BLOOD CELL COUNT(AUTO) 3.89 MIL/uL (4.0-5.2); RED CELL DISTRIBUTION WIDTH 13.9 % (11.5-15.0); WHITE BLOOD COUNT (AUTO) 9.7 K/uL (4.3-11.0)
[2023-09-18] MEDS ORDERED: DEXTROSE 50%-WATER 50 ML DISP.SYRIN IV PRN (07:00)
[2023-09-18 07:30] VITALS: BP_SYST 85; TEMP 97.4; O2SAT 96
[2023-09-18] MEDS ORDERED: INSULIN REGULAR, HUMAN 100 UNIT/ML 3 ML VIAL SQ SCH (07:30)
[2023-09-18] MEDS: BLOOD SUGAR DIAGNOSTIC 1 EACH STRIP IN SCH (07:32)
[2023-09-18 07:43] LABS: ALANINE AMINOTRANSFERASE 15 U/L (12-78); ALBUMIN 2.5 g/dL (3.4-5.0); ALKALINE PHOSPHATASE 80 U/L (46-116); ASPARTATE AMINOTRANSFERASE 10 U/L (15-37); BILIRUBIN,DIRECT 0.1 mg/dL (0.0-0.2); BILIRUBIN,TOTAL 0.4 mg/dL (0.2-1.0); CALCIUM, SERUM 8.9 mg/dL (8.5-10.1); CARBON DIOXIDE 27 mmol/L (21-32); CHLORIDE 100 mmol/L (98-107); CREATININE 6.3 mg/dL (0.6-1.3); GLUCOSE 129 mg/dL (74-106); MAGNESIUM 2.7 mg/dL (1.8-2.4); POTASSIUM 3.1 mmol/L (3.5-5.1); SODIUM SERUM 146 mmol/L (136-145); TOTAL PROTEIN, SERUM 7.3 g/dL (6.4-8.2); UREA NITROGEN, BLOOD 56 mg/dL (7-18)
[2023-09-18] MEDS: PANTOPRAZOLE 40 MG VIAL IV SCH (08:07)
[2023-09-18 08:10] VITALS: BP 158/105; TEMP 98.4; O2SAT 96
[2023-09-18] MEDS ORDERED: PSYL1PAC8 PO (08:55)
[2023-09-18] MEDS ORDERED: ONDA-97 PO (08:55)
[2023-09-18] MEDS ORDERED: SEVE800T8 PO (08:55)
[2023-09-18] MEDS ORDERED: LOPE2CAP40 PO (08:55)
[2023-09-18] MEDS ORDERED: APIX2.5T PO (08:55)
[2023-09-18] MEDS ORDERED: NUT.237L67 PO (08:55)
[2023-09-18] MEDS ORDERED: LOPE-195 PO (08:55)
[2023-09-18] MEDS ORDERED: MEGE400O5 PO (08:55)
[2023-09-18 09:10] LABS: PHOSPHORUS 13.1 mg/dL (2.5-4.9)
[2023-09-18] MEDS: POTASSIUM CHLORIDE 20 MEQ TAB.PRT.SR PO ONE (09:32)
[2023-09-18] MEDS: SEVELAMER CARBONATE 800 MG TABLET PO SCH (10:20)
[2023-09-18] MEDS: CEFTRIAXONE 1 G in IV D5W 50 ML IV SCH (21:13)
[2023-09-18] MEDS: *INSULIN REGULAR(HUMULIN R)HUM 100 UNIT/ML VIAL SQ PRN (22:23)
[2023-09-19 06:40] LABS: BASOPHILS # (AUTO) 0.1 K/uL (0.0-0.2); BASOPHILS % (AUTO) 0.8 % (0.0-2.0); EOSINOPHILS # (AUTO) 0.2 K/uL (0.0-0.7); EOSINOPHILS % (AUTO) 2.3 % (0.0-6.0); HEMATOCRIT 38 % (33-45); HEMOGLOBIN 12.3 g/dL (11.5-14.8); LYMPHOCYTES # (AUTO) 1.4 K/uL (0.8-4.8); LYMPHOCYTES % (AUTO) 18.6 % (20.0-44.0); MEAN CORPUSCULAR HEMOGLOBIN 29 PG (26.0-33.0); MEAN CORPUSCULAR HGB CONC 33 g/dl (31.0-36.0); MEAN CORPUSCULAR VOLUME 88 fL (82-100); MONOCYTES # (AUTO) 0.4 K/uL (0.1-1.30); MONOCYTES % (AUTO) 5.6 % (2.0-12.0); NEUTROPHILS # (AUTO) 5.4 K/uL (1.8-8.9); NEUTROPHILS % (AUTO) 72.7 % (43.0-81.0); PLATELET COUNT (AUTO) 249 K/uL (150-450); RED BLOOD CELL COUNT(AUTO) 4.32 MIL/uL (4.0-5.2); RED CELL DISTRIBUTION WIDTH 13.8 % (11.5-15.0); WHITE BLOOD COUNT (AUTO) 7.4 K/uL (4.3-11.0)
[2023-09-19 06:54] LABS: ALBUMIN 2.3 g/dL (3.4-5.0); BILIRUBIN,TOTAL 0.6 mg/dL (0.2-1.0); CALCIUM, SERUM 9.2 mg/dL (8.5-10.1); MAGNESIUM 2.1 mg/dL (1.8-2.4); PHOSPHORUS 6.9 mg/dL (2.5-4.9); POTASSIUM 3.8 mmol/L (3.5-5.1); TOTAL PROTEIN, SERUM 7.3 g/dL (6.4-8.2)
[2023-09-19 07:00] VITALS: BP 117/80; TEMP 97.7; O2SAT 93
[2023-09-19] MEDS ORDERED: BISACODYL SUPP (10 MG) 10 MG/SUPP.RECT SUPP.RECT RC PRN (08:00)
[2023-09-19] MEDS ORDERED: LOPERAMIDE HCL (2 MG CAP) 2 MG CAPSULE PO PRN (08:00)
[2023-09-19] MEDS ORDERED: CLONIDINE HCL 0.1 MG TABLET PO PRN (08:00)
[2023-09-19] MEDS: METOLAZONE 2.5 MG TABLET PO SCH (08:32)
[2023-09-19] MEDS: FLUOXETINE HCL 20 MG CAPSULE PO SCH (08:32)
[2023-09-19] MEDS: AMLODIPINE BESYLATE 5 MG TABLET PO SCH (08:33)
[2023-09-19] MEDS: APIXABAN 2.5 MG TABLET PO SCH (08:33)
[2023-09-19] MEDS: hydrALAZINE HCL 10 MG TABLET PO SCH (08:34)
[2023-09-19] MEDS: PANTOPRAZOLE 40 MG TABLET.DR PO SCH (08:35)
[2023-09-19] MEDS ORDERED: SEVELAMER CARBONATE 800 MG TABLET PO SCH (13:00)
[2023-09-19 16:00] VITALS: BP 144/85; TEMP 98.6; O2SAT 97
[2023-09-19 20:00] VITALS: BP 142/107; TEMP 98.1; O2SAT 99
[2023-09-19] MEDS: SENNOSIDES 8.6 MG TABLET PO SCH (22:00)
[2023-09-19] MEDS: INSULIN GLARGINE, 100 UNIT/ML CARTRIDGE SQ SCH (22:15)
[2023-09-20 07:59] VITALS: BP 126/92; TEMP 98.2; O2SAT 98
[2023-09-20 15:55] VITALS: BP 137/92; TEMP 97.9; O2SAT 98
[2023-09-20 20:00] VITALS: BP 143/96; TEMP 98.2; O2SAT 95
[2023-09-21 08:39] VITALS: BP 127/86; TEMP 98.1; O2SAT 95
[2023-09-21] MEDS: MAG HYDROX/AL HYDROX/SIMETH 30 ML UDC PO PRN (12:24)
[2023-09-21 15:52] VITALS: BP 105/74; TEMP 97.7; O2SAT 98
[2023-09-21 20:00] VITALS: BP 160/100; TEMP 98.1; O2SAT 100
[2023-09-21 20:09] VITALS: BP 160/102; TEMP 98.1; O2SAT 100
[2023-09-21] MEDS: ALBUMIN 25% 25 GM in PREMIX 1 EA IV PRN (20:58)
[2023-09-22 06:44] LABS: BASOPHILS # (AUTO) 0.1 K/uL (0.0-0.2); EOSINOPHILS # (AUTO) 0.2 K/uL (0.0-0.7); EOSINOPHILS % (AUTO) 2.2 % (0.0-6.0); HEMATOCRIT 36 % (33-45); HEMOGLOBIN 11.9 g/dL (11.5-14.8); LYMPHOCYTES # (AUTO) 1.3 K/uL (0.8-4.8); LYMPHOCYTES % (AUTO) 17.7 % (20.0-44.0); MEAN CORPUSCULAR HEMOGLOBIN 29 PG (26.0-33.0); MEAN CORPUSCULAR HGB CONC 33 g/dl (31.0-36.0); MEAN CORPUSCULAR VOLUME 89 fL (82-100); MONOCYTES # (AUTO) 0.6 K/uL (0.1-1.30); MONOCYTES % (AUTO) 7.8 % (2.0-12.0); NEUTROPHILS # (AUTO) 5.1 K/uL (1.8-8.9); NEUTROPHILS % (AUTO) 71.3 % (43.0-81.0); PLATELET COUNT (AUTO) 239 K/uL (150-450); RED BLOOD CELL COUNT(AUTO) 4.07 MIL/uL (4.0-5.2); RED CELL DISTRIBUTION WIDTH 13.6 % (11.5-15.0); WHITE BLOOD COUNT (AUTO) 7.1 K/uL (4.3-11.0)
[2023-09-22 07:11] LABS: CREATININE 4.5 mg/dL (0.6-1.3); POTASSIUM 3.7 mmol/L (3.5-5.1)
[2023-09-22 08:00] VITALS: BP 130/80; TEMP 98.8; O2SAT 94
[2023-09-22] MEDS ORDERED: LEVO500T90 PO (09:56)
[2023-09-22 13:26] VITALS: BP 127/85
== END 2023-09-22 15:48 | DRG 248 ==
LOC: ER 15:46 → TELE 21:57 → MED 22:45
PROVIDERS: ADMIT Nurse Practitioner Family; ATTEND Nurse Practitioner Family
PROC: 5A1D70Z Performance of Urinary Filtration, Intermittent, Less than 6 Hours Per Day (ICD-10-PCS; principal; 2023-09-18)
DX: A04.9 Bacterial intestinal infection, unspecified (principal); E87.0 Hyperosmolality and hypernatremia; E88.09 Other disorders of plasma-protein metabolism, not elsewhere classified; E83.41 Hypermagnesemia; I12.0 Hypertensive chronic kidney disease with stage 5 chronic kidney disease or end stage renal disease; E10.22 Type 1 diabetes mellitus with diabetic chronic kidney disease; D64.9 Anemia, unspecified; N39.0 Urinary tract infection, site not specified; E87.6 Hypokalemia; N18.6 End stage renal disease; E10.65 Type 1 diabetes mellitus with hyperglycemia; K21.9 Gastro-esophageal reflux disease without esophagitis; G31.84 Mild cognitive impairment of uncertain or unknown etiology; Z99.2 Dependence on renal dialysis; Z79.4 Long term (current) use of insulin; Z87.440 Personal history of urinary (tract) infections; Z79.899 Other long term (current) drug therapy; Z88.1 Allergy status to other antibiotic agents; M89.8X9 Other specified disorders of bone, unspecified site; Z68.1 Body mass index [BMI] 19.9 or less, adult
CPT/HCPCS: 36415; 71045-TC; 80048-TC; 80053-TC; 80076-TC; 81001; 82962-TC; 83690-TC; 83735-TC; 84100-TC; 84443-TC; 84484-TC; 84703-TC; 85025-TC; 85730-TC; 86850-TC; 87040-TC; 90935-TC; A4216; A4223; G0378; J0696; J1170; J1815; J2405; J2470; J7030; J7040; J7060; P9047

== ENCOUNTER 2023-09-29 19:23 | Emergency (ER) | payer MEDICAID ==
[~2023-09-29] VITALS: Ht 162.6 cm; Wt 52.2 kg
[~2023-09-29 19:23] MED LIST changes: +APIX2.5T PO; -DIPH25TA27 PO; +LEVO500T90 PO; +LOPE-195 PO; +LOPE2CAP40 PO; +MEGE400O5 PO; +NUT.237L67 PO; -NYST15PO4 TP; +ONDA-97 PO; +PSYL1PAC8 PO; +SEVE800T8 PO
[2023-09-29] MEDS ORDERED: ACETAMINOPHEN ES 500 MG TABLET ONE (21:52)
[2023-09-29 21:55] VITALS: BP 140/89; TEMP 98.5; O2SAT 98
[2023-09-29] MEDS: ACETAMINOPHEN ES 500 MG TABLET PO ONE (21:55)
== END 2023-09-29 22:07 ==
LOC: ER 19:37
DX: S93.491A Sprain of other ligament of right ankle, initial encounter (principal); S90.31XA Contusion of right foot, initial encounter; S70.02XA Contusion of left hip, initial encounter; S70.01XA Contusion of right hip, initial encounter; I12.0 Hypertensive chronic kidney disease with stage 5 chronic kidney disease or end stage renal disease; N18.6 End stage renal disease; E11.22 Type 2 diabetes mellitus with diabetic chronic kidney disease; E11.65 Type 2 diabetes mellitus with hyperglycemia; D64.9 Anemia, unspecified; E87.5 Hyperkalemia; Z79.1 Long term (current) use of non-steroidal anti-inflammatories (NSAID); Z79.4 Long term (current) use of insulin; Z79.899 Other long term (current) drug therapy; Z88.1 Allergy status to other antibiotic agents; W01.0XXA Fall on same level from slipping, tripping and stumbling without subsequent striking against object, initial encounter; Y93.89 Activity, other specified; Y92.89 Other specified places as the place of occurrence of the external cause; Y99.8 Other external cause status
CPT/HCPCS: 72170-TC; 73610-TC; 73630-TC

== ENCOUNTER 2023-11-12 07:02 | Inpatient (IN) | payer MEDICAID ==
[~2023-11-12] VITALS: Ht 154.9 cm; Wt 51.7 kg
[2023-11-12] MEDS ORDERED: ONDANSETRON HCL/PF 4 MG/2 ML VIAL ONE ×2 (07:29→08:31)
[2023-11-12] MEDS: ONDANSETRON HCL/PF 4 MG/2 ML VIAL IVP ONE (07:30)
[2023-11-12] MEDS: IV NS 0.9% 500 ML BAG IV ONE (07:32)
[2023-11-12 07:38] LABS: BASOPHILS # (AUTO) 0.1 K/uL (0.0-0.2); BASOPHILS % (AUTO) 0.8 % (0.0-2.0); EOSINOPHILS % (AUTO) 0.2 % (0.0-6.0); HEMATOCRIT 34 % (33-45); HEMOGLOBIN 10.6 g/dL (11.5-14.8); LYMPHOCYTES # (AUTO) 1.5 K/uL (0.8-4.8); LYMPHOCYTES % (AUTO) 10.3 % (20.0-44.0); MEAN CORPUSCULAR HEMOGLOBIN 29 PG (26.0-33.0); MEAN CORPUSCULAR HGB CONC 31 g/dl (31.0-36.0); MEAN CORPUSCULAR VOLUME 94 fL (82-100); MONOCYTES # (AUTO) 0.6 K/uL (0.1-1.30); MONOCYTES % (AUTO) 3.9 % (2.0-12.0); NEUTROPHILS # (AUTO) 12.3 K/uL (1.8-8.9); NEUTROPHILS % (AUTO) 84.8 % (43.0-81.0); PLATELET COUNT (AUTO) 344 K/uL (150-450); RED BLOOD CELL COUNT(AUTO) 3.64 MIL/uL (4.0-5.2); RED CELL DISTRIBUTION WIDTH 16.5 % (11.5-15.0); WHITE BLOOD COUNT (AUTO) 14.5 K/uL (4.3-11.0)
[2023-11-12 07:55] LABS: CALCIUM, SERUM 8.5 mg/dL (8.5-10.1); CREATININE 3.1 mg/dL (0.6-1.3); POTASSIUM 3.2 mmol/L (3.5-5.1)
[2023-11-12 08:00] LABS: ALBUMIN 3.3 g/dL (3.4-5.0); BILIRUBIN,DIRECT 0.1 mg/dL (0.0-0.2); BILIRUBIN,TOTAL 0.7 mg/dL (0.2-1.0); TOTAL PROTEIN, SERUM 7.4 g/dL (6.4-8.2)
[2023-11-12] MEDS: ONDANSETRON HCL/PF 4 MG/2 ML VIAL IV ONE (08:30)
[2023-11-12] MEDS ORDERED: MORPHINE SULFATE INJ 2 MG/ML DISP.SYRIN ONE (08:32)
[2023-11-12] MEDS: MORPHINE SULFATE INJ 2 MG/ML DISP.SYRIN IV ONE (08:35)
[2023-11-12 08:46] LABS: ABG BASE EXCESS -11.8 mmol/L (-2.0-3.0); ABG OXYGEN SATURATION 96.5 % (94.0-98.0); ABG PCO2 24.9 mmHg (32.0-45.0); ABG PH 7.324 (7.350-7.450); ABG PO2 97.3 mmHg (83.0-108.0); ABG TOTAL HEMOGLOBIN 11.1 G/dL (12.0-16.0); COHb 0.3 % (0.5-1.5); MetHb 0.1 % (0.0-1.5); O2Hb 96.1 % (94.0-97.0); SITE, ABG LEFT RADIAL
[2023-11-12] MEDS: PIPERACILLIN /TAZOBACTAM 3.375 G in IV D5W 50 ML IV ONE (08:50)
[2023-11-12] MEDS ORDERED: VANC125C11 PO (09:48)
[2023-11-12] MEDS ORDERED: ONDANSETRON HCL/PF 4 MG/2 ML VIAL IVP PRN (12:00)
[2023-11-12] MEDS ORDERED: MAG HYDROX/AL HYDROX/SIMETH 30 ML UDC PO PRN (12:00)
[2023-11-12] MEDS ORDERED: MAGNESIUM HYDROXIDE 30 ML UDC PO PRN (12:00)
[2023-11-12] MEDS ORDERED: ACETAMINOPHEN 325 MG TABLET PO PRN (12:00)
[2023-11-12] MEDS ORDERED: Z GUARD REMEDY 4 OZ OINT TP PRN (12:00)
[2023-11-12] MEDS: hydrALAZINE HCL 10 MG TABLET PO SCH (13:00)
[2023-11-12] MEDS: IV 1/2NS 1000 ML 1,000 ML IV PRN (13:05)
[2023-11-12] MEDS: MORPHINE SULFATE INJ 2 MG/ML DISP.SYRIN IV PRN (13:20)
[2023-11-12] MEDS: CEFTRIAXONE 1 G in IV D5W 50 ML IV SCH (13:38)
[2023-11-12] MEDS: SEVELAMER CARBONATE 800 MG TABLET PO SCH (13:49)
[2023-11-12] MEDS: DICYCLOMINE HCL 10 MG CAPSULE PO SCH (13:50)
[2023-11-12] MEDS: PREGABALIN 25 MG CAPSULE PO SCH (17:30)
[2023-11-12 20:00] VITALS: BP 95/43; TEMP 98.2; O2SAT 99
[2023-11-12] MEDS: INSULIN GLARGINE, 100 UNIT/ML CARTRIDGE SQ SCH (21:31)
[2023-11-13] VITALS: BP 92/47; TEMP 98.4; O2SAT 96
[2023-11-13 04:37] VITALS: BP 103/67; TEMP 97.9; O2SAT 97
[2023-11-13 06:59] LABS: BASOPHILS # (AUTO) 0.1 K/uL (0.0-0.2); BASOPHILS % (AUTO) 0.9 % (0.0-2.0); EOSINOPHILS # (AUTO) 0.2 K/uL (0.0-0.7); EOSINOPHILS % (AUTO) 3.2 % (0.0-6.0); HEMATOCRIT 29 % (33-45); HEMOGLOBIN 9.5 g/dL (11.5-14.8); LYMPHOCYTES # (AUTO) 2.3 K/uL (0.8-4.8); LYMPHOCYTES % (AUTO) 32.3 % (20.0-44.0); MEAN CORPUSCULAR HEMOGLOBIN 29 PG (26.0-33.0); MEAN CORPUSCULAR HGB CONC 33 g/dl (31.0-36.0); MEAN CORPUSCULAR VOLUME 89 fL (82-100); MONOCYTES # (AUTO) 0.8 K/uL (0.1-1.30); NEUTROPHILS # (AUTO) 3.7 K/uL (1.8-8.9); NEUTROPHILS % (AUTO) 52.6 % (43.0-81.0); PLATELET COUNT (AUTO) 329 K/uL (150-450); RED BLOOD CELL COUNT(AUTO) 3.27 MIL/uL (4.0-5.2); RED CELL DISTRIBUTION WIDTH 15.8 % (11.5-15.0)
[2023-11-13 08:00] VITALS: BP 114/75; TEMP 97.6; O2SAT 97
[2023-11-13] MEDS: PANTOPRAZOLE 40 MG TABLET.DR PO SCH (08:11)
[2023-11-13 08:29] LABS: CREATININE 5.5 mg/dL (0.6-1.3); MAGNESIUM 2.5 mg/dL (1.8-2.4)
[2023-11-13 08:37] LABS: PHOSPHORUS 9.2 mg/dL (2.5-4.9)
[2023-11-13] MEDS: METOLAZONE 2.5 MG TABLET PO SCH (09:00)
[2023-11-13] MEDS: FLUOXETINE HCL 20 MG CAPSULE PO SCH (09:57)
[2023-11-13] MEDS: PANTOPRAZOLE 40 MG VIAL IV SCH (10:02)
[2023-11-13 12:00] VITALS: BP 118/75; TEMP 98.1; O2SAT 98
[2023-11-13] MEDS: SEVELAMER CARBONATE 800 MG TABLET PO SCH (13:36)
[2023-11-13 16:00] VITALS: BP 132/81; TEMP 97.5; O2SAT 96
[2023-11-13 20:00] VITALS: BP 131/85; TEMP 99.1; O2SAT 91
[2023-11-14] VITALS: BP 156/95; TEMP 98.2; O2SAT 97
[2023-11-14 04:00] VITALS: BP 145/86; TEMP 98.1; O2SAT 95
[2023-11-14 07:30] VITALS: BP 161/102; TEMP 98.6; O2SAT 93
[2023-11-14] MEDS: PANTOPRAZOLE 40 MG TABLET.DR PO SCH (08:51)
[2023-11-14 16:37] VITALS: BP 159/93; TEMP 98.4; O2SAT 95
[2023-11-14 20:00] VITALS: BP 170/100; TEMP 98.8; O2SAT 97
[2023-11-14] MEDS: CLONIDINE HCL 0.1 MG TABLET PO PRN (21:14)
[2023-11-14] MEDS: BLOOD SUGAR DIAGNOSTIC 1 EACH STRIP VI SCH (21:47)
[2023-11-14] MEDS: *INSULIN REGULAR(HUMULIN R)HUM 100 UNIT/ML VIAL SQ PRN (21:50)
[2023-11-14] MEDS ORDERED: DEXTROSE 50%-WATER 50 ML DISP.SYRIN IV PRN (22:00)
[2023-11-14 22:50] VITALS: BP 150/90; O2SAT 98
[2023-11-15] VITALS: BP 150/90; TEMP 98.2; O2SAT 97
[2023-11-15] MEDS: INSULIN REGULAR, HUMAN 100 UNIT/ML 3 ML VIAL SQ PRN (06:27)
[2023-11-15 08:03] LABS: PREGNANCY TEST URINE QUAL NEGATIVE (NEGATIVE)
[2023-11-15 08:54] VITALS: BP 99/68; TEMP 97.7; O2SAT 98
[2023-11-15 11:44] VITALS: BP 131/95; TEMP 98.1; O2SAT 95
[2023-11-15 16:03] VITALS: BP 143/96; TEMP 97.5; O2SAT 99
== END 2023-11-15 17:06 | DRG 463 ==
LOC: ER 07:08 → TELE 12:32 → MED 11-15 17:00
PROVIDERS: ADMIT Internal Medicine; ATTEND Internal Medicine
PROC: 5A1D70Z Performance of Urinary Filtration, Intermittent, Less than 6 Hours Per Day (ICD-10-PCS; principal; 2023-11-13)
DX: N39.0 Urinary tract infection, site not specified (principal); E87.20 Acidosis, unspecified; I12.0 Hypertensive chronic kidney disease with stage 5 chronic kidney disease or end stage renal disease; D63.1 Anemia in chronic kidney disease; E83.39 Other disorders of phosphorus metabolism; E88.09 Other disorders of plasma-protein metabolism, not elsewhere classified; E11.22 Type 2 diabetes mellitus with diabetic chronic kidney disease; N18.6 End stage renal disease; K21.9 Gastro-esophageal reflux disease without esophagitis; Z99.2 Dependence on renal dialysis; Z79.4 Long term (current) use of insulin; E11.65 Type 2 diabetes mellitus with hyperglycemia; E87.6 Hypokalemia; Z87.19 Personal history of other diseases of the digestive system; Z88.1 Allergy status to other antibiotic agents; Z91.011 Allergy to milk products; K76.0 Fatty (change of) liver, not elsewhere classified; Z79.899 Other long term (current) drug therapy; N25.0 Renal osteodystrophy; M62.81 Muscle weakness (generalized)
CPT/HCPCS: 36415; 36600; 71045-TC; 80048-TC; 80076-TC; 82040-TC; 82803-TC; 82962-TC; 83605-TC; 83690-TC; 83735-TC; 84100-TC; 84702-TC; 84703-TC; 85025-TC; 87040-TC; 87081-TC; 90935-TC; A4223; A6253; G0378; J0696; J1815; J2270; J2405; J2470; J2543; J3490; J7030; J7040; J7042; J7060

== ENCOUNTER 2024-04-15 16:53 | Emergency (ER) | payer MEDICAID ==
[~2024-04-15] VITALS: Ht 154.9 cm; Wt 54.4 kg
[~2024-04-15 16:53] MED LIST changes: -AMLO5TAB4 PO; -APIX2.5T PO; -CLON0.1T PO; -HYDR2TAB4 PO; -LEVO500T90 PO; -LOPE-195 PO; -LOPE2CAP40 PO; -MEGE400O5 PO; -NUT.237L67 PO; +VANC125C11 PO; -VITA1TAB98 PO
[2024-04-15 17:00] VITALS: TEMP 98.3
[2024-04-15] MEDS ORDERED: MAG HYDROX/AL HYDROX/SIMETH 30 ML UDC ONE (17:33)
[2024-04-15] MEDS ORDERED: ONDANSETRON HCL/PF 4 MG/2 ML VIAL ONE (17:33)
[2024-04-15] MEDS ORDERED: PANTOPRAZOLE 40 MG VIAL ONE (17:33)
[2024-04-15] MEDS: ONDANSETRON HCL/PF 4 MG/2 ML VIAL IVP ONE (17:36)
[2024-04-15] MEDS: PANTOPRAZOLE 40 MG VIAL IV ONE (17:38)
[2024-04-15 17:43] LABS: EOSINOPHILS # (AUTO) 0.1 K/uL (0.0-0.7); HEMOGLOBIN 10.7 g/dL (11.5-14.8)
[2024-04-15 17:50] LABS: BASOPHILS % (AUTO) 0.6 % (0.0-2.0); EOSINOPHILS % (AUTO) 2.3 % (0.0-6.0); HEMATOCRIT 32 % (33-45); LYMPHOCYTES # (AUTO) 1.1 K/uL (0.8-4.8); LYMPHOCYTES % (AUTO) 18.6 % (20.0-44.0); MEAN CORPUSCULAR HEMOGLOBIN 31 PG (26.0-33.0); MEAN CORPUSCULAR HGB CONC 33 g/dl (31.0-36.0); MEAN CORPUSCULAR VOLUME 92 fL (82-100); MONOCYTES # (AUTO) 0.3 K/uL (0.1-1.30); MONOCYTES % (AUTO) 5.7 % (2.0-12.0); NEUTROPHILS # (AUTO) 4.4 K/uL (1.8-8.9); NEUTROPHILS % (AUTO) 72.8 % (43.0-81.0); PLATELET COUNT (AUTO) 303 K/uL (150-450); RED BLOOD CELL COUNT(AUTO) 3.49 MIL/uL (4.0-5.2); RED CELL DISTRIBUTION WIDTH 14.4 % (11.5-15.0)
[2024-04-15] MEDS: MAG HYDROX/AL HYDROX/SIMETH 30 ML UDC PO ONE (17:50)
[2024-04-15 17:51] LABS: CARBON DIOXIDE 22 mmol/L (21-32); CHLORIDE 99 mmol/L (98-107); CREATININE 3.3 mg/dL (0.6-1.3); GLUCOSE 239 mg/dL (74-106); POTASSIUM 3.9 mmol/L (3.5-5.1); SODIUM SERUM 138 mmol/L (136-145); UREA NITROGEN, BLOOD 17 mg/dL (7-18)
[2024-04-15 18:02] LABS: ALANINE AMINOTRANSFERASE 42 U/L (12-78); ALBUMIN 3.5 g/dL (3.4-5.0); ALKALINE PHOSPHATASE 178 U/L (46-116); ASPARTATE AMINOTRANSFERASE 35 U/L (15-37); BILIRUBIN,DIRECT 0.1 mg/dL (0.0-0.2); BILIRUBIN,TOTAL 0.6 mg/dL (0.2-1.0); LIPASE 23 U/L (16-77); TOTAL PROTEIN, SERUM 7.9 g/dL (6.4-8.2)
[2024-04-15] MEDS ORDERED: TRAMADOL HCL 50 MG TABLET ONE (18:58)
[2024-04-15] MEDS: TRAMADOL HCL 50 MG TABLET PO ONE (19:00)
[2024-04-15] MEDS ORDERED: VITA1TAB20 PO (19:17)
[2024-04-15] MEDS ORDERED: HYDR2TAB7 PO (19:17)
[2024-04-15] MEDS ORDERED: ONDA-97 PO (19:17)
[2024-04-15] MEDS ORDERED: hydrALAZINE HCL IV 20 MG VIAL ONE (20:17)
[2024-04-15] MEDS: hydrALAZINE HCL IV 20 MG VIAL IV ONE (20:21)
[2024-04-15] MEDS ORDERED: hydrALAZINE HCL 10 MG TABLET PO ONE (20:30)
[2024-04-15 21:20] VITALS: BP 152/85; O2SAT 97
== END 2024-04-15 21:45 ==
LOC: ER 16:57
DX: K21.9 Gastro-esophageal reflux disease without esophagitis (principal); R07.89 Other chest pain; R10.9 Unspecified abdominal pain; R11.2 Nausea with vomiting, unspecified; I12.0 Hypertensive chronic kidney disease with stage 5 chronic kidney disease or end stage renal disease; E11.22 Type 2 diabetes mellitus with diabetic chronic kidney disease; N18.6 End stage renal disease; I51.7 Cardiomegaly; Z79.899 Other long term (current) drug therapy; Z99.2 Dependence on renal dialysis; Z87.39 Personal history of other diseases of the musculoskeletal system and connective tissue; Z88.8 Allergy status to other drugs, medicaments and biological substances
CPT/HCPCS: 99285; 96374; 96375; 71045; 93005; 85025; 80048; 83690; 80076; 36415; 84484; J0360; J2405; J2470

== ENCOUNTER 2024-05-02 04:13 | Inpatient (IN) | payer MEDICAID ==
[~2024-05-02] VITALS: Ht 154.9 cm; Wt 54.4 kg
[~2024-05-02 04:13] MED LIST changes: +HYDR2TAB7 PO; -MAGN400O6 PO; -METO10TA8 PO; -SENN8.6T19 PO; -VANC125C11 PO; +VITA1TAB20 PO
[2024-05-02 04:50] LABS: BASOPHILS # (AUTO) 0.1 K/uL (0.0-0.2); BASOPHILS % (AUTO) 1.4 % (0.0-2.0); EOSINOPHILS # (AUTO) 0.1 K/uL (0.0-0.7); EOSINOPHILS % (AUTO) 1.4 % (0.0-6.0); HEMATOCRIT 35 % (33-45); HEMOGLOBIN 11.5 g/dL (11.5-14.8); LYMPHOCYTES # (AUTO) 1.4 K/uL (0.8-4.8); LYMPHOCYTES % (AUTO) 16.3 % (20.0-44.0); MEAN CORPUSCULAR HEMOGLOBIN 31 PG (26.0-33.0); MEAN CORPUSCULAR HGB CONC 33 g/dl (31.0-36.0); MEAN CORPUSCULAR VOLUME 92 fL (82-100); MONOCYTES # (AUTO) 0.5 K/uL (0.1-1.30); MONOCYTES % (AUTO) 5.4 % (2.0-12.0); NEUTROPHILS # (AUTO) 6.5 K/uL (1.8-8.9); NEUTROPHILS % (AUTO) 75.5 % (43.0-81.0); PLATELET COUNT (AUTO) 251 K/uL (150-450); RED BLOOD CELL COUNT(AUTO) 3.73 MIL/uL (4.0-5.2); RED CELL DISTRIBUTION WIDTH 15.4 % (11.5-15.0); WHITE BLOOD COUNT (AUTO) 8.6 K/uL (4.3-11.0)
[2024-05-02 05:00] LABS: CALCIUM, SERUM 9.1 mg/dL (8.5-10.1); POTASSIUM 3.6 mmol/L (3.5-5.1)
[2024-05-02] MEDS ORDERED: hydrALAZINE HCL IV 20 MG VIAL ONE (05:00)
[2024-05-02] MEDS ORDERED: ONDANSETRON HCL/PF 4 MG/2 ML VIAL ONE (05:00)
[2024-05-02 05:08] LABS: INR 1.02 (0.91-1.10); PARTIAL THROMBOPLASTIN TIME 20.2 SEC (24.3-34.3); PROTHROMBIN TIME 10.8 SECS (9.2-11.1)
[2024-05-02] MEDS: hydrALAZINE HCL IV 20 MG VIAL IV ONE (05:09)
[2024-05-02] MEDS: ONDANSETRON HCL/PF - ER 4 MG/2 ML VIAL IV ONE (05:09)
[2024-05-02 05:25] LABS: CREATININE 8.5 mg/dL (0.6-1.3)
[2024-05-02] MEDS ORDERED: DEXTROSE 50%-WATER 50 ML DISP.SYRIN IV PRN (07:00)
[2024-05-02] MEDS ORDERED: ACETAMINOPHEN 325 MG TABLET PO PRN (07:00)
[2024-05-02] MEDS ORDERED: INSULIN REGULAR, HUMAN 100 UNIT/ML 3 ML VIAL SQ PRN (07:00)
[2024-05-02] MEDS ORDERED: MAG HYDROX/AL HYDROX/SIMETH 30 ML UDC PO PRN (07:00)
[2024-05-02] MEDS ORDERED: HYDROMORPHONE HCL 2 MG TABLET PO PRN (07:00)
[2024-05-02] MEDS: BLOOD SUGAR DIAGNOSTIC 1 EACH STRIP VI SCH (07:58)
[2024-05-02] MEDS: SEVELAMER CARBONATE 800 MG TABLET PO SCH (08:00)
[2024-05-02] MEDS ORDERED: PANTOPRAZOLE 40 MG TABLET.DR PO ONE (08:01)
[2024-05-02] MEDS: PANTOPRAZOLE 40 MG TABLET.DR PO SCH (08:02)
[2024-05-02] MEDS ORDERED: LOPE2CAP40 PO (08:22)
[2024-05-02 08:30] VITALS: BP 128/98; TEMP 98; O2SAT 97
[2024-05-02] MEDS: hydrALAZINE HCL 10 MG TABLET PO SCH (09:00)
[2024-05-02] MEDS: FLUOXETINE HCL 20 MG/5 ML UDC PO SCH (09:00)
[2024-05-02] MEDS: VITAMIN B COMP W-C 1 TAB TABLET PO SCH (09:00)
[2024-05-02] MEDS: PREGABALIN 25 MG CAPSULE PO SCH (09:00)
[2024-05-02] MEDS: HEPARIN SODIUM, PORCINE 5000 UNITS/1 ML VIAL SQ SCH (10:36)
[2024-05-02] MEDS: HYDROMORPHONE 1 MG/1 ML DISP.SYRIN IV PRN (10:37)
[2024-05-02 12:00] VITALS: BP 119/80; TEMP 97.9; O2SAT 97
[2024-05-02] MEDS: ONDANSETRON HCL/PF 4 MG/2 ML VIAL IVP PRN (12:20)
[2024-05-02] MEDS: PANTOPRAZOLE 40 MG VIAL IV SCH (13:12)
[2024-05-02 16:00] VITALS: BP 112/69; TEMP 99.3; O2SAT 95
[2024-05-02] MEDS: *INSULIN REGULAR(HUMULIN R)HUM 100 UNIT/ML VIAL SQ PRN (17:05)
[2024-05-02 20:00] VITALS: BP 128/90; TEMP 98.4; O2SAT 99
[2024-05-02] MEDS: diphenhydrAMINE HCL 50 MG/ML VIAL IV ONE (21:19)
[2024-05-02] MEDS: INSULIN GLARGINE, 100 UNIT/ML CARTRIDGE SQ SCH (22:00)
[2024-05-03] VITALS: BP 117/76; TEMP 98.1; O2SAT 97
[2024-05-03 04:00] VITALS: BP 165/95; TEMP 98.1; O2SAT 97
[2024-05-03 06:34] VITALS: BP 110/69; TEMP 98.1; O2SAT 95
[2024-05-03 06:39] LABS: BASOPHILS # (AUTO) 0.1 K/uL (0.0-0.2); BASOPHILS % (AUTO) 1.2 % (0.0-2.0); EOSINOPHILS # (AUTO) 0.2 K/uL (0.0-0.7); HEMATOCRIT 31 % (33-45); HEMOGLOBIN 10.4 g/dL (11.5-14.8); LYMPHOCYTES # (AUTO) 1.6 K/uL (0.8-4.8); LYMPHOCYTES % (AUTO) 20.8 % (20.0-44.0); MEAN CORPUSCULAR HEMOGLOBIN 31 PG (26.0-33.0); MEAN CORPUSCULAR HGB CONC 33 g/dl (31.0-36.0); MEAN CORPUSCULAR VOLUME 93 fL (82-100); MONOCYTES # (AUTO) 0.6 K/uL (0.1-1.30); MONOCYTES % (AUTO) 7.8 % (2.0-12.0); NEUTROPHILS # (AUTO) 5.1 K/uL (1.8-8.9); NEUTROPHILS % (AUTO) 68.2 % (43.0-81.0); PLATELET COUNT (AUTO) 253 K/uL (150-450); RED BLOOD CELL COUNT(AUTO) 3.37 MIL/uL (4.0-5.2); RED CELL DISTRIBUTION WIDTH 15.5 % (11.5-15.0); WHITE BLOOD COUNT (AUTO) 7.5 K/uL (4.3-11.0)
[2024-05-03 07:05] LABS: CALCIUM, SERUM 8.9 mg/dL (8.5-10.1); CREATININE 5.2 mg/dL (0.6-1.3); PHOSPHORUS 3.9 mg/dL (2.5-4.9); POTASSIUM 3.7 mmol/L (3.5-5.1)
[2024-05-03 08:00] VITALS: BP 144/81; TEMP 97.9; O2SAT 99
[2024-05-03] MEDS ORDERED: Z GUARD REMEDY 4 OZ OINT TP PRN (09:00)
[2024-05-03 12:00] VITALS: BP 153/98; TEMP 97.8; O2SAT 98
[2024-05-03] MEDS: Z GUARD REMEDY 4 OZ OINT TP SCH (12:03)
[2024-05-03] MEDS: CLOTRIMAZOLE/BETAMETASONE DIPROPIONATE 15 GM TUBE TP SCH (12:03)
[2024-05-03 14:56] VITALS: BP 174/109
[2024-05-03] MEDS: hydrALAZINE HCL IV 20 MG VIAL IV PRN (14:56)
== END 2024-05-03 15:18 | DRG 199 ==
LOC: ER 04:18 → TELE1 06:16
PROVIDERS: ADMIT Internal Medicine; ATTEND Internal Medicine
PROC: 5A1D70Z Performance of Urinary Filtration, Intermittent, Less than 6 Hours Per Day (ICD-10-PCS; principal; 2024-05-02)
DX: I16.0 Hypertensive urgency (principal); N18.6 End stage renal disease; E11.22 Type 2 diabetes mellitus with diabetic chronic kidney disease; D63.8 Anemia in other chronic diseases classified elsewhere; E11.43 Type 2 diabetes mellitus with diabetic autonomic (poly)neuropathy; I12.0 Hypertensive chronic kidney disease with stage 5 chronic kidney disease or end stage renal disease; E83.9 Disorder of mineral metabolism, unspecified; K31.84 Gastroparesis; E87.5 Hyperkalemia; F32.9 Major depressive disorder, single episode, unspecified; Z79.4 Long term (current) use of insulin; Z88.1 Allergy status to other antibiotic agents; Z99.2 Dependence on renal dialysis; G89.29 Other chronic pain; R11.2 Nausea with vomiting, unspecified; Z79.891 Long term (current) use of opiate analgesic
CPT/HCPCS: 36415; 71045-TC; 80048-TC; 82962-TC; 83735-TC; 84100-TC; 85025-TC; 85730-TC; 87081-TC; 90935-TC; 92526; 92611-TC; 97110-TC; 97116-TC; 97530-TC; 97535-TC; A6403; G0378; J0360; J1171; J1200; J1644; J1815; J2405; J2470; J7030

== ENCOUNTER 2024-05-06 03:07 | Emergency (ER) | payer MEDICAID ==
[~2024-05-06] VITALS: Ht 160 cm; Wt 65.8 kg
[~2024-05-06 03:07] MED LIST changes: +LOPE2CAP40 PO
[2024-05-06 03:13] VITALS: TEMP 98.6
[2024-05-06] MEDS: MORPHINE SULFATE INJ 2 MG/ML DISP.SYRIN IV ONE (03:30)
[2024-05-06] MEDS: ONDANSETRON HCL/PF 4 MG/2 ML VIAL IVP ONE (03:30)
[2024-05-06] MEDS ORDERED: MORPHINE SULFATE INJ 4 MG/ML DISP.SYRIN ONE (03:38)
[2024-05-06] MEDS ORDERED: ONDANSETRON HCL/PF 4 MG/2 ML VIAL ONE (03:38)
[2024-05-06] MEDS ORDERED: INSULIN REGULAR, HUMAN 100 UNIT/ML 10 ML VIAL ONE (03:39)
[2024-05-06] MEDS: IV NS 0.9% 1,000 ML BAG IV ONE (03:44)
[2024-05-06] MEDS: INSULIN REGULAR, HUMAN 100 UNIT/ML 10 ML VIAL IV ONE (03:48)
[2024-05-06 03:49] LABS: ABG BASE EXCESS -7.7 mmol/L (-2.0-3.0); ABG OXYGEN SATURATION 96.7 % (94.0-98.0); ABG PCO2 36.4 mmHg (32.0-45.0); ABG PH 7.308 (7.350-7.450); ABG PO2 102.1 mmHg (83.0-108.0); COHb 0.3 % (0.5-1.5); MetHb 0.3 % (0.0-1.5); O2Hb 96.1 % (94.0-97.0); SITE, ABG RIGHT RADIAL
[2024-05-06 03:58] LABS: BASOPHILS % (AUTO) 0.5 % (0.0-2.0); EOSINOPHILS # (AUTO) 0.1 K/uL (0.0-0.7); EOSINOPHILS % (AUTO) 0.8 % (0.0-6.0); HEMATOCRIT 37 % (33-45); HEMOGLOBIN 11.9 g/dL (11.5-14.8); LYMPHOCYTES # (AUTO) 0.6 K/uL (0.8-4.8); LYMPHOCYTES % (AUTO) 6.8 % (20.0-44.0); MEAN CORPUSCULAR HEMOGLOBIN 31 PG (26.0-33.0); MEAN CORPUSCULAR HGB CONC 32 g/dl (31.0-36.0); MEAN CORPUSCULAR VOLUME 96 fL (82-100); MONOCYTES # (AUTO) 0.5 K/uL (0.1-1.30); MONOCYTES % (AUTO) 5.6 % (2.0-12.0); NEUTROPHILS # (AUTO) 8.2 K/uL (1.8-8.9); NEUTROPHILS % (AUTO) 86.3 % (43.0-81.0); PLATELET COUNT (AUTO) 278 K/uL (150-450); RED BLOOD CELL COUNT(AUTO) 3.86 MIL/uL (4.0-5.2); RED CELL DISTRIBUTION WIDTH 15.4 % (11.5-15.0); WHITE BLOOD COUNT (AUTO) 9.5 K/uL (4.3-11.0)
[2024-05-06 04:08] LABS: CALCIUM, SERUM 9.5 mg/dL (8.5-10.1); CREATININE 6.8 mg/dL (0.6-1.3); INR 0.99 (0.91-1.10); PARTIAL THROMBOPLASTIN TIME 29.2 SEC (24.3-34.3); POTASSIUM 4.9 mmol/L (3.5-5.1); PROTHROMBIN TIME 10.5 SECS (9.2-11.1)
[2024-05-06 04:17] LABS: LACTIC ACID 1.3 mmol/L (0.4-2.0)
[2024-05-06 04:24] LABS: ALBUMIN 4.1 g/dL (3.4-5.0); BILIRUBIN,DIRECT 0.1 mg/dL (0.0-0.2); BILIRUBIN,TOTAL 0.4 mg/dL (0.2-1.0); TOTAL PROTEIN, SERUM 8.8 g/dL (6.4-8.2)
[2024-05-06 05:35] LABS: PREGNANCY TEST URINE QUAL NEGATIVE (NEGATIVE)
[2024-05-06] MEDS ORDERED: HYDROCODONE/APAP 5/325MG TABLET ONE (08:59)
[2024-05-06] MEDS: HYDROCODONE/APAP 5/325MG TABLET PO ONE (09:02)
[2024-05-06 09:14] VITALS: BP 151/96; O2SAT 99
== END 2024-05-06 09:49 ==
LOC: ER 03:14
DX: I12.0 Hypertensive chronic kidney disease with stage 5 chronic kidney disease or end stage renal disease (principal); E11.22 Type 2 diabetes mellitus with diabetic chronic kidney disease; N18.6 End stage renal disease; Z99.2 Dependence on renal dialysis; E11.65 Type 2 diabetes mellitus with hyperglycemia; D63.1 Anemia in chronic kidney disease; R11.2 Nausea with vomiting, unspecified; Z79.899 Other long term (current) drug therapy
CPT/HCPCS: 99291; 96374; 96375; 96361; 93005; 82803; 71045; 85025; 80048; 87040 ×2; 82010; 83605; 83690; 80076; 84703; 36415; 85730; 82962 ×2; 36600; J1815; J2270; J2405

== ENCOUNTER 2024-05-27 15:06 | Inpatient (IN) | payer MEDICAID ==
[~2024-05-27] VITALS: Ht 157.5 cm; Wt 49.0 kg
[2024-05-27] MEDS ORDERED: MORPHINE SULFATE INJ 4 MG/ML DISP.SYRIN ONE ×2 (15:53→18:18)
[2024-05-27] MEDS ORDERED: FAMOTIDINE/PF INJ 20 MG/2 ML VIAL IV ONE (15:53)
[2024-05-27] MEDS: ONDANSETRON HCL 4 MG/5 ML SOLUTION PO ONE (16:03)
[2024-05-27] MEDS: MORPHINE SULFATE 8 MG/ML VIAL IM/IV ONE ×2 (16:04→18:19)
[2024-05-27 16:06] LABS: BASOPHILS # (AUTO) 0.1 K/uL (0.0-0.2); BASOPHILS % (AUTO) 0.7 % (0.0-2.0); EOSINOPHILS % (AUTO) 0.2 % (0.0-6.0); HEMATOCRIT 37 % (33-45); HEMOGLOBIN 12.7 g/dL (11.5-14.8); LYMPHOCYTES # (AUTO) 0.6 K/uL (0.8-4.8); LYMPHOCYTES % (AUTO) 5.5 % (20.0-44.0); MEAN CORPUSCULAR HEMOGLOBIN 32 PG (26.0-33.0); MEAN CORPUSCULAR HGB CONC 34 g/dl (31.0-36.0); MEAN CORPUSCULAR VOLUME 93 fL (82-100); MONOCYTES # (AUTO) 0.3 K/uL (0.1-1.30); MONOCYTES % (AUTO) 3.1 % (2.0-12.0); NEUTROPHILS # (AUTO) 9.6 K/uL (1.8-8.9); NEUTROPHILS % (AUTO) 90.5 % (43.0-81.0); PLATELET COUNT (AUTO) 279 K/uL (150-450); RED BLOOD CELL COUNT(AUTO) 3.97 MIL/uL (4.0-5.2); RED CELL DISTRIBUTION WIDTH 15.2 % (11.5-15.0); WHITE BLOOD COUNT (AUTO) 10.6 K/uL (4.3-11.0)
[2024-05-27] MEDS ORDERED: ONDANSETRON HCL/PF 4 MG/2 ML VIAL ONE (16:06)
[2024-05-27] MEDS ORDERED: LIDOCAINE VISCOUS 2% UD 15 ML UDC ONE (16:07)
[2024-05-27] MEDS ORDERED: MAG HYDROX/AL HYDROX/SIMETH 30 ML UDC ONE (16:07)
[2024-05-27 16:13] LABS: CALCIUM, SERUM 9.7 mg/dL (8.5-10.1); CREATININE 3.3 mg/dL (0.6-1.3); POTASSIUM 3.1 mmol/L (3.5-5.1)
[2024-05-27] MEDS: ONDANSETRON HCL/PF 4 MG/2 ML VIAL IV ONE (16:13)
[2024-05-27 16:18] LABS: ALBUMIN 4.1 g/dL (3.4-5.0); BILIRUBIN,DIRECT 0.1 mg/dL (0.0-0.2); BILIRUBIN,TOTAL 0.5 mg/dL (0.2-1.0); TOTAL PROTEIN, SERUM 8.3 g/dL (6.4-8.2)
[2024-05-27] MEDS: FAMOTIDINE/PF INJ 20 MG/2 ML VIAL IV ONE (16:24)
[2024-05-27] MEDS: LIDOCAINE VISCOUS 2% UD 15 ML UDC MM ONE (16:30)
[2024-05-27] MEDS: MAG HYDROX/AL HYDROX/SIMETH 30 ML UDC PO ONE (16:30)
[2024-05-27] MEDS ORDERED: IV NS 0.9% 250 ML IV ONE (18:15)
[2024-05-27] MEDS ORDERED: IOHEXOL-300 100 ML VIAL IV ONE (18:15)
[2024-05-27] MEDS ORDERED: CT SWABBABLE VALVE TRANS SET 1 EA INFUS.SET MC ONE (18:15)
[2024-05-27] MEDS ORDERED: hydrALAZINE HCL IV 20 MG VIAL ONE (18:17)
[2024-05-27] MEDS: hydrALAZINE HCL IV 20 MG VIAL IV ONE (18:23)
[2024-05-27 22:30] VITALS: BP 98/57; TEMP 97.3; O2SAT 100
[2024-05-27] MEDS ORDERED: MAGNESIUM HYDROXIDE 30 ML UDC PO PRN (23:00)
[2024-05-27] MEDS ORDERED: Z GUARD REMEDY 4 OZ OINT TP PRN (23:00)
[2024-05-27] MEDS ORDERED: MAG HYDROX/AL HYDROX/SIMETH 30 ML UDC PO PRN (23:00)
[2024-05-27] MEDS ORDERED: BISACODYL SUPP (10 MG) 10 MG/SUPP.RECT SUPP.RECT RC PRN (23:00)
[2024-05-27] MEDS: DICYCLOMINE HCL 10 MG CAPSULE PO SCH (23:48)
[2024-05-27] MEDS: METOCLOPRAMIDE HCL 10 MG/2 ML VIAL IV SCH (23:48)
[2024-05-27] MEDS: ASPIRIN 81 MG TAB.CHEW PO SCH (23:48)
[2024-05-28 04:00] VITALS: BP 98/63; TEMP 97.5; O2SAT 98
[2024-05-28] MEDS: BLOOD SUGAR DIAGNOSTIC 1 EACH STRIP IN SCH (06:37)
[2024-05-28] MEDS: INSULIN REGULAR, HUMAN 100 UNIT/ML 3 ML VIAL SQ PRN (06:38)
[2024-05-28 07:35] LABS: BASOPHILS # (AUTO) 0.1 K/uL (0.0-0.2); EOSINOPHILS # (AUTO) 0.1 K/uL (0.0-0.7); EOSINOPHILS % (AUTO) 1.2 % (0.0-6.0); HEMATOCRIT 36 % (33-45); HEMOGLOBIN 11.7 g/dL (11.5-14.8); LYMPHOCYTES % (AUTO) 24.2 % (20.0-44.0); MEAN CORPUSCULAR HEMOGLOBIN 31 PG (26.0-33.0); MEAN CORPUSCULAR HGB CONC 32 g/dl (31.0-36.0); MEAN CORPUSCULAR VOLUME 97 fL (82-100); MONOCYTES # (AUTO) 0.7 K/uL (0.1-1.30); MONOCYTES % (AUTO) 7.9 % (2.0-12.0); NEUTROPHILS # (AUTO) 5.5 K/uL (1.8-8.9); NEUTROPHILS % (AUTO) 65.7 % (43.0-81.0); PLATELET COUNT (AUTO) 261 K/uL (150-450); RED BLOOD CELL COUNT(AUTO) 3.73 MIL/uL (4.0-5.2); RED CELL DISTRIBUTION WIDTH 15.7 % (11.5-15.0); WHITE BLOOD COUNT (AUTO) 8.4 K/uL (4.3-11.0)
[2024-05-28 08:00] VITALS: BP 96/52; TEMP 97.7; O2SAT 95
[2024-05-28 08:26] LABS: THYROID STIMULATING HORMONE 1.73 uIU/mL (0.358-3.74)
[2024-05-28] MEDS: hydrALAZINE HCL 10 MG TABLET PO SCH (09:00)
[2024-05-28 09:03] LABS: CALCIUM, SERUM 9.1 mg/dL (8.5-10.1); CREATININE 4.4 mg/dL (0.6-1.3); MAGNESIUM 2.7 mg/dL (1.8-2.4); PHOSPHORUS 5.2 mg/dL (2.5-4.9); POTASSIUM 3.1 mmol/L (3.5-5.1)
[2024-05-28] MEDS: VITAMIN B COMP W-C 1 TAB TABLET PO SCH (09:34)
[2024-05-28] MEDS: SEVELAMER CARBONATE 800 MG TABLET PO SCH (09:34)
[2024-05-28] MEDS: FLUOXETINE HCL 20 MG CAPSULE PO SCH (09:37)
[2024-05-28] MEDS: POTASSIUM CHLORIDE 20 MEQ TAB.PRT.SR PO ONE (09:37)
[2024-05-28] MEDS: PANTOPRAZOLE 40 MG VIAL IV SCH (09:49)
[2024-05-28 12:00] VITALS: BP 108/57; TEMP 97.5; O2SAT 95
[2024-05-28] MEDS: HYDROMORPHONE HCL 2 MG TABLET PO PRN (12:57)
[2024-05-28 16:00] VITALS: BP 90/50; TEMP 97.5; O2SAT 95
[2024-05-28] MEDS: IV NS 0.9% 500 ML IV ONE (16:42)
[2024-05-28 20:00] VITALS: BP 105/68; TEMP 97.7; O2SAT 95
[2024-05-28 20:48] VITALS: BP 124/54
[2024-05-28 21:50] LABS: APPEARANCE,URINE CLOUDY (CLEAR); BILIRUBIN,URINE NEGATIVE (NEGATIVE); BLOOD, URINE 1+ Ery/uL (NEGATIVE); COLOR,URINE YELLOW (YELLOW); KETONES,URINE TRACE mg/dL (NEGATIVE); LEUKOCYTE ESTERASE ,URINE 1+ (NEGATIVE); NITRITE, URINE NEGATIVE (NEGATIVE); PH,URINE 7.5 (5.0-8.0); PROTEIN,URINE 3+ mg/dl (NEGATIVE); UGLUCOSE 1+ mg/dL (NEGATIVE); UROBILINOGEN,URINE 0.2 EU/dL (0.2)
[2024-05-28] MEDS: INSULIN GLARGINE, 100 UNIT/ML CARTRIDGE SQ SCH (22:09)
[2024-05-28 22:25] LABS: ADD URINE CULTURE YES; BACTERIA,URINE 2+ /HPF (None Seen)
[2024-05-29] VITALS: BP 118/70; TEMP 98.1; O2SAT 96
[2024-05-29 04:00] VITALS: BP 146/81; TEMP 98.1; O2SAT 96
[2024-05-29 07:00] LABS: BASOPHILS # (AUTO) 0.1 K/uL (0.0-0.2); BASOPHILS % (AUTO) 0.9 % (0.0-2.0); EOSINOPHILS # (AUTO) 0.2 K/uL (0.0-0.7); EOSINOPHILS % (AUTO) 2.7 % (0.0-6.0); HEMATOCRIT 34 % (33-45); HEMOGLOBIN 11.4 g/dL (11.5-14.8); LYMPHOCYTES # (AUTO) 1.7 K/uL (0.8-4.8); LYMPHOCYTES % (AUTO) 24.4 % (20.0-44.0); MEAN CORPUSCULAR HEMOGLOBIN 32 PG (26.0-33.0); MEAN CORPUSCULAR HGB CONC 34 g/dl (31.0-36.0); MEAN CORPUSCULAR VOLUME 94 fL (82-100); MONOCYTES # (AUTO) 0.6 K/uL (0.1-1.30); MONOCYTES % (AUTO) 8.6 % (2.0-12.0); NEUTROPHILS # (AUTO) 4.4 K/uL (1.8-8.9); NEUTROPHILS % (AUTO) 63.4 % (43.0-81.0); PLATELET COUNT (AUTO) 283 K/uL (150-450); RED BLOOD CELL COUNT(AUTO) 3.58 MIL/uL (4.0-5.2); RED CELL DISTRIBUTION WIDTH 15.8 % (11.5-15.0); WHITE BLOOD COUNT (AUTO) 6.9 K/uL (4.3-11.0)
[2024-05-29 07:10] LABS: CALCIUM, SERUM 8.8 mg/dL (8.5-10.1); CREATININE 6.4 mg/dL (0.6-1.3); MAGNESIUM 2.6 mg/dL (1.8-2.4); PHOSPHORUS 4.4 mg/dL (2.5-4.9)
[2024-05-29 08:00] VITALS: BP 151/89; TEMP 98.1; O2SAT 96
[2024-05-29 12:00] VITALS: BP 135/94; TEMP 97.9; O2SAT 93
[2024-05-29] MEDS: HYDROMORPHONE HCL 2 MG TABLET PO PRN (12:05)
[2024-05-29] MEDS: CEFTRIAXONE 1 G in IV D5W 50 ML IV SCH (12:16)
[2024-05-29 16:00] VITALS: BP 150/100; TEMP 98.2; O2SAT 94
[2024-05-29] MEDS: HYDROMORPHONE 1 MG/1 ML DISP.SYRIN IV PRN (16:39)
[2024-05-29 20:00] VITALS: BP 135/94; TEMP 98.6; O2SAT 93
[2024-05-30] VITALS: BP 164/111; TEMP 98.6; O2SAT 100
[2024-05-30 04:00] VITALS: BP 134/91; TEMP 97.9; O2SAT 95
[2024-05-30 08:00] VITALS: BP 177/65; TEMP 98; O2SAT 98
[2024-05-30 08:08] LABS: BASOPHILS % (AUTO) 0.7 % (0.0-2.0); EOSINOPHILS # (AUTO) 0.3 K/uL (0.0-0.7); EOSINOPHILS % (AUTO) 3.6 % (0.0-6.0); HEMATOCRIT 34 % (33-45); HEMOGLOBIN 11.3 g/dL (11.5-14.8); LYMPHOCYTES # (AUTO) 1.7 K/uL (0.8-4.8); MEAN CORPUSCULAR HEMOGLOBIN 31 PG (26.0-33.0); MEAN CORPUSCULAR HGB CONC 33 g/dl (31.0-36.0); MEAN CORPUSCULAR VOLUME 94 fL (82-100); MONOCYTES # (AUTO) 0.6 K/uL (0.1-1.30); MONOCYTES % (AUTO) 8.5 % (2.0-12.0); NEUTROPHILS # (AUTO) 4.4 K/uL (1.8-8.9); NEUTROPHILS % (AUTO) 62.2 % (43.0-81.0); PLATELET COUNT (AUTO) 268 K/uL (150-450); RED CELL DISTRIBUTION WIDTH 15.3 % (11.5-15.0)
[2024-05-30 08:26] LABS: CALCIUM, SERUM 9.2 mg/dL (8.5-10.1); PHOSPHORUS 4.7 mg/dL (2.5-4.9); POTASSIUM 4.4 mmol/L (3.5-5.1)
[2024-05-30] MEDS: PANTOPRAZOLE 40 MG TABLET.DR PO SCH (09:12)
[2024-05-30 09:44] LABS: CREATININE 7.8 mg/dL (0.6-1.3)
[2024-05-30 13:22] VITALS: BP 130/66; TEMP 98
[2024-05-30 17:00] VITALS: BP 135/74; TEMP 98; O2SAT 99
[2024-05-30] MEDS: DEXTROSE 50%-WATER 50 ML DISP.SYRIN IV PRN (17:13)
[2024-05-30 20:00] VITALS: BP 165/58; TEMP 98.6; O2SAT 97
[2024-05-31] VITALS: BP 90/53; TEMP 98.6; O2SAT 99
[2024-05-31 04:00] VITALS: BP 167/80; TEMP 98.3; O2SAT 98
[2024-05-31 08:09] LABS: BASOPHILS # (AUTO) 0.1 K/uL (0.0-0.2); EOSINOPHILS # (AUTO) 0.2 K/uL (0.0-0.7); EOSINOPHILS % (AUTO) 4.1 % (0.0-6.0); HEMATOCRIT 35 % (33-45); HEMOGLOBIN 11.5 g/dL (11.5-14.8); LYMPHOCYTES # (AUTO) 1.7 K/uL (0.8-4.8); LYMPHOCYTES % (AUTO) 28.2 % (20.0-44.0); MEAN CORPUSCULAR HEMOGLOBIN 31 PG (26.0-33.0); MEAN CORPUSCULAR HGB CONC 33 g/dl (31.0-36.0); MEAN CORPUSCULAR VOLUME 95 fL (82-100); MONOCYTES # (AUTO) 0.6 K/uL (0.1-1.30); NEUTROPHILS # (AUTO) 3.4 K/uL (1.8-8.9); NEUTROPHILS % (AUTO) 56.7 % (43.0-81.0); PLATELET COUNT (AUTO) 239 K/uL (150-450); RED BLOOD CELL COUNT(AUTO) 3.66 MIL/uL (4.0-5.2); RED CELL DISTRIBUTION WIDTH 15.1 % (11.5-15.0)
[2024-05-31 08:32] LABS: CALCIUM, SERUM 8.7 mg/dL (8.5-10.1); CREATININE 5.6 mg/dL (0.6-1.3); MAGNESIUM 2.6 mg/dL (1.8-2.4); POTASSIUM 4.2 mmol/L (3.5-5.1)
[2024-05-31 09:38] VITALS: BP 146/61; TEMP 98; O2SAT 98
[2024-05-31 12:00] VITALS: BP 140/67; TEMP 98; O2SAT 99
[2024-05-31 14:00] VITALS: BP 137/65; TEMP 98; O2SAT 97
[2024-05-31 16:49] VITALS: BP 139/66; TEMP 98; O2SAT 97
[2024-06-01 00:30] VITALS: BP 155/99; TEMP 98; O2SAT 97
[2024-06-01] MEDS: hydrALAZINE HCL IV 20 MG VIAL IV PRN (01:19)
[2024-06-01 04:40] VITALS: BP 128/96; TEMP 97.3; O2SAT 96
[2024-06-01 08:00] VITALS: BP 142/69; TEMP 98
[2024-06-01 10:32] LABS: BASOPHILS % (AUTO) 0.4 % (0.0-2.0); EOSINOPHILS # (AUTO) 0.2 K/uL (0.0-0.7); EOSINOPHILS % (AUTO) 3.8 % (0.0-6.0); HEMATOCRIT 36 % (33-45); LYMPHOCYTES # (AUTO) 1.6 K/uL (0.8-4.8); LYMPHOCYTES % (AUTO) 26.3 % (20.0-44.0); MEAN CORPUSCULAR HEMOGLOBIN 32 PG (26.0-33.0); MEAN CORPUSCULAR HGB CONC 34 g/dl (31.0-36.0); MEAN CORPUSCULAR VOLUME 95 fL (82-100); MONOCYTES # (AUTO) 0.5 K/uL (0.1-1.30); MONOCYTES % (AUTO) 8.5 % (2.0-12.0); NEUTROPHILS # (AUTO) 3.8 K/uL (1.8-8.9); PLATELET COUNT (AUTO) 232 K/uL (150-450); RED BLOOD CELL COUNT(AUTO) 3.77 MIL/uL (4.0-5.2); RED CELL DISTRIBUTION WIDTH 14.8 % (11.5-15.0); WHITE BLOOD COUNT (AUTO) 6.2 K/uL (4.3-11.0)
[2024-06-01] MEDS ORDERED: ASPI-1169 PO (10:42)
[2024-06-01] MEDS ORDERED: METO5TAB87 PO (10:42)
[2024-06-01] MEDS ORDERED: DICY10CA37 PO (10:42)
[2024-06-01 10:51] LABS: CALCIUM, SERUM 9.5 mg/dL (8.5-10.1); CREATININE 7.1 mg/dL (0.6-1.3); PHOSPHORUS 4.7 mg/dL (2.5-4.9); POTASSIUM 5.3 mmol/L (3.5-5.1)
[2024-06-01 12:00] VITALS: BP 112/78; TEMP 98; O2SAT 98
[2024-06-01 17:00] VITALS: BP 119/60; TEMP 98; O2SAT 99
[2024-06-01 20:00] VITALS: BP 95/55; TEMP 98.2; O2SAT 97
[2024-06-01] MEDS: ONDANSETRON HCL/PF 4 MG/2 ML VIAL IVP PRN (22:25)
[2024-06-02 04:00] VITALS: BP 123/91; TEMP 98.1; O2SAT 95
[2024-06-02 08:00] VITALS: BP 101/64; TEMP 98.1; O2SAT 93
[2024-06-02 08:34] LABS: CALCIUM, SERUM 9.2 mg/dL (8.5-10.1); CREATININE 4.5 mg/dL (0.6-1.3); POTASSIUM 4.3 mmol/L (3.5-5.1)
[2024-06-02 12:00] VITALS: BP 101/64; TEMP 98.1; O2SAT 93
[2024-06-02 16:00] VITALS: BP 101/94; TEMP 98.8; O2SAT 97
[2024-06-02] MEDS: ACETAMINOPHEN 325 MG TABLET PO PRN (16:12)
[2024-06-02 20:00] VITALS: BP 97/60; TEMP 98.1; O2SAT 97
[2024-06-03 04:00] VITALS: BP 124/86; TEMP 97.7; O2SAT 97
[2024-06-03 08:00] VITALS: BP 103/66; TEMP 97.5; O2SAT 100
[2024-06-03 09:56] LABS: CALCIUM, SERUM 8.9 mg/dL (8.5-10.1); CREATININE 6.7 mg/dL (0.6-1.3); POTASSIUM 5.3 mmol/L (3.5-5.1)
[2024-06-03 13:00] VITALS: BP 100/60
[2024-06-03] MEDS ORDERED: IV NS 0.9% 500 ML IV ONE (15:00)
== END 2024-06-03 15:09 | DRG 48 ==
LOC: ER 15:08 → TELE1 21:59 → MEDSG1 05-30 10:12
PROVIDERS: ADMIT Nurse Practitioner Family; ATTEND Student in an Organized Health Care Education/Training Program
PROC: 5A1D70Z Performance of Urinary Filtration, Intermittent, Less than 6 Hours Per Day (ICD-10-PCS; principal; 2024-05-30)
DX: E10.43 Type 1 diabetes mellitus with diabetic autonomic (poly)neuropathy (principal); I12.0 Hypertensive chronic kidney disease with stage 5 chronic kidney disease or end stage renal disease; E10.649 Type 1 diabetes mellitus with hypoglycemia without coma; D63.1 Anemia in chronic kidney disease; E83.9 Disorder of mineral metabolism, unspecified; N18.6 End stage renal disease; K31.84 Gastroparesis; N39.0 Urinary tract infection, site not specified; B96.20 Unspecified Escherichia coli [E. coli] as the cause of diseases classified elsewhere; F32.A Depression, unspecified; Z99.2 Dependence on renal dialysis; E87.6 Hypokalemia; F41.9 Anxiety disorder, unspecified; Z79.4 Long term (current) use of insulin; N25.0 Renal osteodystrophy; F39 Unspecified mood [affective] disorder; R59.0 Localized enlarged lymph nodes; R93.89 Abnormal findings on diagnostic imaging of other specified body structures; E10.22 Type 1 diabetes mellitus with diabetic chronic kidney disease
CPT/HCPCS: 36415; 76705-TC; 80048-TC; 80061-TC; 80076-TC; 81001; 82962-TC; 83690-TC; 83735-TC; 84100-TC; 84443-TC; 84484-TC; 84702-TC; 85025-TC; 87081-TC; 87086-TC; 87186-TC; 90935-TC; 93307-TC; 97112-TC; 97116-TC; 97530-TC; A4223; G0378; J0360; J0696; J1171; J1308; J1815; J2270; J2405; J2470; J2765; J7030; J7050; J7060; Q9967